=== PATIENT | male | born 1960 | race Caucasian/White ===

== ENCOUNTER 2017-11-28 13:40 | Inpatient (IN) | payer OTHER, MEDICARE ==
[2017-11-28] VITALS (9 sets, daily range): BP systolic 107–172; BP diastolic 58–84; PULSE 73–101; RESP 12–16; TEMP 97.5–98.2; O2SAT 97–100
[~2017-11-28] VITALS: Ht 185.4 cm; Wt 116.7 kg
[~2017-11-28 13:40] MED LIST: ASPI1TAB57 PO; CELE200C PO; CILO50TA PO; FLUT1SPR5 EACH NARE; GABA100C4 PO; LISI-515 PO; SITA1TAB2 PO; VENL75TA PO; VICT18IN SQ
--- NOTE | 2017-11-28 13:59 | PD ---
HPI Chief Complaint: Chest Pain Time Seen by Provider: 13:44 Travel History International Travel<30 days: No Contact w/Intl Traveler<30days: No Traveled to known affect area: No History of Present Illness HPI This is a 57-year-old male who presents to the emergency department with chest discomfort that started 20 minutes ago mostly in the left side of the chest, constant, sharp and stabbing radiating to the right arm and his left jaw. He denies any associated nausea, shortness of breath or diaphoresis. Says he had an episode about 3 weeks ago of chest discomfort and went to an ER in [place]. At that time he was evaluated for blood clot with a CT and he was told everything was okay. The patient does have a history of a DVT in the left lower extremity. He says his had a cardiac catheterization [address] Islas which was normal and he says he had a stress test 9 months ago which was normal at [facility]. PFS Past Medical History Anxiety: Yes Cardiac Catheterization: Yes (2013) Cardiovascular Problems: Yes (HTN) Dementia: Yes Diabetes: Yes Past Surgical History Abdominal Surgery: Yes (GASTRIC [id number],COLON [id number]) Cholecystectomy: Yes (2004) Other Surgery: Yes (L ULNAR NERVE) Social History Alcohol Use: No Tobacco Use: No Substance Use: No Allergies-Medications (Allergen,Severity, Reaction): Coded Allergies: losartan (Unverified Allergy, Severe, Rash, 11/28/17) Reported Meds & Prescriptions Reported Meds & Active Scripts Active Reported [Multivitamin] [Vitamin D] Unknown Dose Omeprazole 20 Mg Tab 20 Mg PO DAILY Aspirin 81 (Aspirin) 81 Mg Tabdr 81 Mg PO DAILY Celebrex (Celecoxib) 200 Mg Cap 200 Mg PO DAILY Gabapentin 100 Mg Cap 100 Mg PO BID Cilostazol 50 Mg Tab 50 Mg PO BID Victoza Inj (Liraglutide Inj) 18 Mg/3 Ml Pen 1.2 Mg SQ DAILY Lisinopril 20 Mg Tab 20 Mg PO DAILY Effexor (Venlafaxine HCl) 75 Mg Tab 75 Mg PO DAILY Januvia (Sitagliptin Phosphate) 100 Mg Tab 100 Mg PO DAILY Review of Systems Except as stated in HPI: all other systems reviewed are Neg Physical Exam Narrative GENERAL:Well appearing, no acute distress SKIN: Focused skin assessment warm and dry. HEAD: Atraumatic. Normocephalic. EYES: Pupils equal and round. No injection or drainage. ENT: Moist mucous membranes NECK: Trachea midline. CARDIOVASCULAR: Regular rate and rhythm. No murmur appreciated. RESPIRATORY: Clear to auscultation. Breath sounds equal bilaterally. GASTROINTESTINAL: Abdomen soft, non-tender, nondistended. MUSCULOSKELETAL: More swelling in the left lower extremity than the right. NEUROLOGICAL: Awake and alert. No obvious cranial nerve deficits. Moving all extremities. PSYCHIATRIC: Appropriate mood and affect; insight and judgment normal. Data Data Last Documented VS Vital Signs Date Time Temp Pulse Resp B/P (MAP) Pulse Ox O2 Delivery O2 Flow Rate FiO2 11/28/17 18:27 73 16 107/58 (74) 98 Nasal Cannula 2.00 11/28/17 13:53 98.2 Orders Orders Electrocardiogram (11/28/17 13:50) Complete Blood Count With Diff (11/28/17 13:50) Comprehensive Metabolic Panel (11/28/17 13:50) D-Dimer (11/28/17 13:50) Prothrombin Time / Inr (Pt) (11/28/17 13:50) Act Partial Throm Time (Ptt) (11/28/17 13:50) Troponin I (11/28/17 13:50) Chest, Single Ap (11/28/17 13:50) Ecg Monitoring (11/28/17 13:50) Bilateral Bp Monitoring (11/28/17 13:50) Iv Access Insert/Monitor (11/28/17 13:50) Oximetry (11/28/17 13:50) Oxygen Administration (11/28/17 13:50) Aspirin Chew (Aspirin Chew) (11/28/17 14:00) Sodium Chloride 0.9% Flush (Ns Flush) (11/28/17 14:00) Morphine Inj (Morphine Inj) (11/28/17 14:00) Morphine Inj (Morphine Inj) (11/28/17 15:15) Ct Pulmonary Angiogram (11/28/17 ) Al-Mag Hy-Si 40-40-4 Mg/Ml Liq (Mag-Al P (11/28/17 15:45) Lidocaine 2% Viscous (Xylocaine 2% Visco (11/28/17 15:45) Nljkb-Frxtgi-Azeeuo-Pb Liq ( Liq (11/28/17 15:45) Iohexol 350 Inj (Omnipaque 350 Inj) (11/28/17 16:27) Electrocardiogram (11/28/17 16:43) Creatine Kinase (Cpk) (11/28/17 16:43) Ckmb (Isoenzyme) Profile (11/28/17 16:43) Troponin I (11/28/17 16:43) Electrocardiogram (18 ) CKMB (11/28/17 17:10) CKMB% (11/28/17 17:10) Nitroglycerin Sl (Nitrostat Sl) (11/28/17 18:15) Admit Order (Ed Use Only) (11/28/17 19:16) Bedside Glucose NATASHA.CSUGAR (11/28/17 19:15) Blood Glucose Goal (Criteria) (11/28/17 19:15) Hypoglycemia 70 Mg/Dl Or < (11/28/17 19:15) Notify Dr: Other (11/28/17 19:15) Dextrose 50% In Dariel (Vial) Inj (D50w (Vi (11/28/17 19:15) Glucagon Inj (Glucagon Inj) (11/28/17 19:15) Insulin Aspart Supplemtl Scale (Novolog (11/28/17 21:00) Admit To Inpatient (11/28/17 ) Vital Signs (Adult) Q4H (11/28/17 19:15) Activity Oob Ad Marti (11/28/17 19:15) Logistics Analyst / Telemetry .CONTINUOUS (11/28/17 19:15) Intake + Output NATASHA.QSHIFT (11/28/17 19:15) Diet Heart Healthy (11/29/17 Breakfast) Sodium Chloride 0.9% Flush (Ns Flush) (11/28/17 19:15) Sodium Chloride 0.9% Flush (Ns Flush) (11/28/17 21:00) Ondansetron Inj (Zofran Inj) (11/28/17 19:15) Comprehensive Metabolic Panel (11/29/17 06:00) Complete Blood Count With Diff (11/29/17 06:00) Troponin I (11/29/17 00:00) Troponin I (11/29/17 06:00) Scd Bilateral/Knee High NATASHA.BID (11/28/17 19:15) Jackson Bilateral/Knee High NATASHA.QSHIFT (11/28/17 19:18) Acetaminophen (Tylenol) (11/28/17 19:15) Acetamin-Hydrocod 325-5 Mg ([place] 5-325 (11/28/17 19:15) Morphine Inj (Morphine Inj) (11/28/17 19:15) Docusate Sodium-Senna (Johanny-Colace) (11/28/17 21:00) Magnesium Hydroxide Liq (Milk Of Magnesi (11/28/17 19:15) Sennosides (Senokot) (11/28/17 19:15) Bisacodyl Supp (Dulcolax Supp) (11/28/17 19:15) Lactulose Liq (Lactulose Liq) (11/28/17 19:15) Inpatient Certification (11/28/17 ) Aspirin Ec (Ecotrin Ec) (11/29/17 09:00) Cilostazol (Pletal) (11/28/17 21:00) Gabapentin (Neurontin) (11/28/17 21:00) (Nf) Omeprazole (11/29/17 09:00) (Nf) Venlafaxine (Effexor) (11/29/17 09:00) Consult Cardiology (11/28/17 ) Labs Laboratory Tests Test 11/28/17 14:07 11/28/17 17:10 White Blood Count 9.5 TH/MM3 Red Blood Count 4.93 MIL/MM3 Hemoglobin 12.1 GM/DL Hematocrit 38.0 % Mean Corpuscular Volume 77.1 FL Mean Corpuscular Hemoglobin 24.5 PG Mean Corpuscular Hemoglobin Concent 31.7 % Red Cell Distribution Width 14.5 % Platelet Count 256 TH/MM3 Mean Platelet Volume 9.6 FL Neutrophils (%) (Auto) 60.6 % Lymphocytes (%) (Auto) 30.7 % Monocytes (%) (Auto) 5.6 % Eosinophils (%) (Auto) 2.5 % Basophils (%) (Auto) 0.6 % Neutrophils # (Auto) 5.8 TH/MM3 Lymphocytes # (Auto) 2.9 TH/MM3 Monocytes # (Auto) 0.5 TH/MM3 Eosinophils # (Auto) 0.2 TH/MM3 Basophils # (Auto) 0.1 TH/MM3 CBC Comment AUTO DIFF Differential Comment AUTO DIFF CONFIRMED Platelet Estimate NORMAL Platelet Morphology Comment NORMAL Red Cell Morphology Comment NORMAL Prothrombin Time 10.0 SEC Prothromb Time International Ratio 1.0 RATIO Activated Partial Thromboplast Time 24.9 SEC D-Dimer Quantitative (PE/DVT) 0.75 MG/L FEU Blood Urea Nitrogen 14 MG/DL Creatinine 1.10 MG/DL Random Glucose 200 MG/DL Total Protein 7.6 GM/DL Albumin 3.5 GM/DL Calcium Level 8.4 MG/DL Alkaline Phosphatase 99 U/L Aspartate Amino Transf (AST/SGOT) 17 U/L Alanine Aminotransferase (ALT/SGPT) 29 U/L Total Bilirubin 0.7 MG/DL Sodium Level 135 MEQ/L Potassium Level 4.1 MEQ/L Chloride Level 100 MEQ/L Carbon Dioxide Level 26.0 MEQ/L Anion Gap 9 MEQ/L Estimat Glomerular Filtration Rate 69 ML/MIN Troponin I 0.02 NG/ML 0.09 NG/ML Total Creatine Kinase 293 U/L Creatine Kinase MB 5.2 NG/ML MDM Medical Decision Making Medical Screen Exam Complete: Yes Emergency Medical Condition: Yes Interpretation(s) EKG: Normal sinus rhythm, no ST changes Mild anemia Hyperglycemia Repeat troponin at 3 hours is 0.09 CXR: no acute process Differential Diagnosis nSTEMI, unstable angina, pulmonary embolism, aortic dissection Narrative Course This is a 57-year-old male who presents to the emergency department with chest discomfort that started about 30 minutes prior to arrival. He was placed on a monitor and an IV was established. He was given aspirin and nitroglycerin. EKG is nonischemic. Labs were obtained which were initially reassuring. Given the recent onset of his chest pain a troponin was repeated at 3 hours and is 0.09. I spoke to Dr. Patel who is on-call for Dr. Islas. He recommended the patient be transferred to the main hospital for close monitoring and possible cardiac catheterization. He recommended we defer heparin until a repeat troponin to see if the troponin continues to trend up. Physician Communication Physician Communication Discussed with Dr. Patel and Dr. Pierce Diagnosis Primary Impression: Unstable angina Admitting Information Admitting Physician Requests: Admit Chula Mccollum MD Nov 28, 2017 13:59
[2017-11-28] MEDS ORDERED: ASPIRIN 81 MG CHEW TAB PO ONE (14:00)
[2017-11-28] MEDS ORDERED: MORPHINE SULFATE 2 MG/ML INJ IV PUSH ONE ×2 (14:00→15:15)
[2017-11-28] MEDS ORDERED: SODIUM CHLORIDE 0.9% FLUSH 10 ML FLUSH IVF PRN (14:00)
[2017-11-28] MEDS ORDERED: VITAMIN D (14:05)
[2017-11-28] MEDS ORDERED: OMEP20TA93 PO (14:05)
[2017-11-28] MEDS ORDERED: MULTIVITAMIN (14:05)
[2017-11-28 14:44] LABS: AUTOMATED NEUTROPHIL # 5.8 TH/MM3 (1.8-7.7); BASOPHIL # 0.1 TH/MM3 (0-0.2); BASOPHIL % 0.6 % (0.0-2.0); EOSINOPHIL # 0.2 TH/MM3 (0-0.4); EOSINOPHIL % 2.5 % (0.0-4.0); HEMOGLOBIN 12.1 GM/DL (13.0-17.0); LYMPH % 30.7 % (9.0-44.0); LYMPHOCYTE # 2.9 TH/MM3 (1.0-4.8); MEAN CELL VOLUME 77.1 FL (80.0-100.0); MEAN CORPUSCULAR HEMOGLOBIN 24.5 PG (27.0-34.0); MEAN CORPUSCULAR HGB CONC 31.7 % (32.0-36.0); MEAN PLATELET VOLUME 9.6 FL (7.0-11.0); MONO % 5.6 % (0.0-8.0); MONOCYTE # 0.5 TH/MM3 (0-0.9); NEUT % 60.6 % (16.0-70.0); PLATELET COUNT 256 TH/MM3 (150-450); RED BLOOD COUNT 4.93 MIL/MM3 (4.50-5.90); RED CELL DISTRIBUTION WIDTH 14.5 % (11.6-17.2); WHITE BLOOD COUNT 9.5 TH/MM3 (4.0-11.0)
[2017-11-28 14:52] LABS: CHLORIDE 100 MEQ/L (98-107); SODIUM (NA) 135 MEQ/L (136-145)
--- NOTE | 2017-11-28 14:53 | RADRPT ---
EXAM DATE/TIME: 11/28/2017 14:12 [facility] COMPARISON: No previous studies available for comparison. INDICATIONS : Chest pain today MEDICAL HISTORY : Diabetes mellitus type II. SURGICAL HISTORY : None. ENCOUNTER: Initial ACUITY: 1 day PAIN SCORE: 9/10 LOCATION: Bilateral chest FINDINGS: A single view of the chest demonstrates the lungs to be symmetrically aerated without evidence of mas s, infiltrate or effusion. The cardiomediastinal contours are unremarkable. Osseous structures are intact. CONCLUSION: 1. No acute cardiopulmonary disease. Isaac Nunez MD on November 28, 2017 at 14:50 Board Certified Radiologist. This report was verified electronically.
[2017-11-28 14:55] LABS: ALBUMIN 3.5 GM/DL (3.4-5.0); BLOOD UREA NITROGEN 14 MG/DL (7-18); CALCIUM 8.4 MG/DL (8.5-10.1); GLUCOSE,RANDOM 200 MG/DL (74-106)
[2017-11-28 14:58] LABS: ALT (GPT) 29 U/L (12-78)
[2017-11-28 14:59] LABS: AST (GOT) 17 U/L (15-37); GLOMERULAR FILTRATION RATE 69 ML/MIN (>89)
[2017-11-28 15:00] LABS: TOTAL BILIRUBIN ADULT 0.7 MG/DL (0.2-1.0); TOTAL PROTEIN 7.6 GM/DL (6.4-8.2)
[2017-11-28 15:01] LABS: ALKALINE PHOSPHATASE 99 U/L (45-117)
[2017-11-28 15:03] LABS: TROPONIN I 0.02 NG/ML (0.02-0.05)
[2017-11-28 15:33] LABS: D-DIMER 0.75 MG/L FEU (0.00-0.50)
[2017-11-28] MEDS ORDERED: LIDOCAINE VISCOUS 2% SOLN 15 ML UDC SWISH-SWAL ONE (15:45)
[2017-11-28] MEDS ORDERED: ATROPINE/SCOPOLAM/HYOSCYAM/PB ELIXIR 10 ML CUP PO ONE (15:45)
[2017-11-28] MEDS ORDERED: ALUMINUM/MAGNESIUM/SIMETH 30 ML CUP PO ONE (15:45)
[2017-11-28] MEDS ORDERED: IOHEXOL 350 MG/ML 10 ML VIAL (for RAD DIAG) IVCONTRAST ONE (16:27)
--- NOTE | 2017-11-28 16:36 | RADRPT ---
EXAM DATE/TIME: 11/28/2017 16:17 [facility] COMPARISON: CT PULMONARY ANGIOGRAM, January 07, 2015, 15:23. INDICATIONS : Left sided chest pain. IV CONTRAST: 75 cc Omnipaque 350 (iohexol) IV RADIATION DOSE: 21.41 CTDIvol (mGy) MEDICAL HISTORY : Hypertension. SURGICAL HISTORY : Gastric bypass. Colon resection.Orthopedic surgery. ENCOUNTER: Initial ACUITY: 1 day PAIN SCALE: 5/10 LOCATION: Left chest TECHNIQUE: Volumetric scanning of the chest was performed using a pulmonary embolism protocol MIP images were re constructed. Using automated exposure control and adjustment of the mA and/or kV according to patien t size, radiation dose was kept as low as reasonably achievable to obtain optimal diagnostic quality images. DICOM format image data is available electronically for review and comparison. Follow-up recommendations for detected pulmonary nodules are based at a minimum on nodule size and pa tient risk factors according to Fleischner Society Guidelines. FINDINGS: Examination of the pulmonary vasculature demonstrates good filling of the main, lobar and segmental b ranches. There are no filling defects to suggest pulmonary embolism. Multiplanar reconstructions are also unremarkable. Examination of the lung schofield demonstrates no evidence of pulmonary nodule. No pleural fluid is iden tified. Examination of the mediastinum demonstrates no abnormally enlarged lymph nodes by CT criteria . No axillary or hilar abnormalities are identified. Coronary artery calcifications are present. A sm all hiatal hernia is present. A gastric sleeve is evident. CONCLUSION: 1. No evidence of pulmonary embolism. Isaac Nunez MD on November 28, 2017 at 16:31 Board Certified Radiologist. This report was verified electronically.
[2017-11-28 17:51] LABS: TROPONIN I 0.09 NG/ML (0.02-0.05)
[2017-11-28] MEDS ORDERED: NITROGLYCERIN 0.4 MG SL 25 TABS/BTL SL ONE (18:15)
[2017-11-28] MEDS ORDERED: LACTULOSE SYRUP 20 GM/30 ML CUP PO PRN (19:15)
[2017-11-28] MEDS ORDERED: BISACODYL 10 MG SUPP RECTAL PRN (19:15)
[2017-11-28] MEDS ORDERED: DEXTROSE 50% IN WATER 50 ML VIAL(D50) IV PUSH PRN (19:15)
[2017-11-28] MEDS ORDERED: ACETAMINOPHEN/HYDROcodone 325 MG/5 MG TAB PO PRN (19:15)
[2017-11-28] MEDS ORDERED: ONDANSETRON HCL 4 MG/2 ML VIAL IVP PRN (19:15)
[2017-11-28] MEDS ORDERED: MAGNESIUM HYDROXIDE SUSP 30 ML CUP PO PRN (19:15)
[2017-11-28] MEDS ORDERED: GLUCAGON 1 MG/ML VIAL OTHER PRN (19:15)
[2017-11-28] MEDS ORDERED: ACETAMINOPHEN 325 MG TAB PO PRN (19:15)
[2017-11-28] MEDS ORDERED: MORPHINE SULFATE 2 MG/ML INJ IV PUSH PRN (19:15)
[2017-11-28] MEDS ORDERED: SODIUM CHLORIDE 0.9% FLUSH 10 ML FLUSH IV FLUSH PRN (19:15)
[2017-11-28] MEDS ORDERED: SENNOSIDES 8.6 MG TAB PO PRN (19:15)
[2017-11-28] MEDS: DOCUSATE SODIUM 50 MG/SENNA 8.6 MG TAB PO SCH (22:46)
[2017-11-28] MEDS: INSULIN ASPART SUPPLEMENTAL SCALE SQ SCH (22:56)
[2017-11-28] MEDS: GABAPENTIN 100 MG CAP PO SCH (23:04)
[2017-11-28] MEDS: CILOSTAZOL 50 MG TAB PO SCH (23:04)
[2017-11-28] MEDS: SODIUM CHLORIDE 0.9% FLUSH 10 ML FLUSH IV FLUSH SCH (23:05)
[2017-11-29] VITALS (25 sets, daily range): BP systolic 108–138; BP diastolic 58–80; PULSE 75–98; RESP 14–18; TEMP 97.7–99; O2SAT 93–99
--- NOTE | 2017-11-29 00:21 | HHI.HP ---
[facility] Service [facility] Primary Care Physician Ryan Frost MD Admission Diagnosis Unstable angina Diagnoses: (1) Unstable angina Diagnosis: Principal Chief Complaint: Chest pain Travel History International Travel<30 Days: No Contact w/Intl Traveler <30 Da: No Traveled to Known Affected Are: No History of Present Illness Mr. Werner is a pleasant 57-year-old male patient with a known medical history of CAD with history of CABG, type 2 diabetes and hypertension who presented to the ED with complaints of chest pain. Patient states that around 1300 today while at rest he developed a sudden midsternal chest pain that radiated to his right arm, jaw and neck. Patient states the pain was intermittent, sharp and burning in nature, would intermittently worsen in severity, and rated a 9/10 on pain scale at its worst. Patient denies any aggravating or relieving factors, denies any associated nausea, vomiting, or diaphoresis. Does admit to associated shortness of breath with chest pain. Patient does state improvement of pain with the use of nitroglycerin and aspirin in the ED. Patient states that in late October he developed a similar type of chest discomfort and was evaluated in the ER in [place]. At that time CT of the chest and lower extremity ultrasounds were performed which were reportedly unremarkable. Patient does follow with the inside sales, Dr. Islas, who was last seen 9 months ago and at that time patient underwent a cardiac stress test which was reportedly unremarkable. Patient does report a history of CABG in 2003. Denies any recent fever, chills, cough, shortness of breath, abdominal pain, nausea, vomiting, diarrhea or dysuria. At the time of assessment patient is lying in bed comfortably, rated the pain a 2/10 on pain scale, has just received IV morphine. Awaiting third set of cardiac enzymes. Review of Systems Constitutional: DENIES: Diaphoretic episodes, Fatigue, Fever, Chills Eyes: DENIES: Diplopia, Vision loss Respiratory: COMPLAINS OF: Shortness of breath, DENIES: Cough, Sputum production Cardiovascular: COMPLAINS OF: Chest pain, Palpitations, Dyspnea on Exertion Gastrointestinal: DENIES: Abdominal pain, Bloody stools, Constipation, Diarrhea , Nausea, Vomiting Psychiatric: DENIES: Anxiety Except as stated in HPI: all other systems reviewed are Neg Past Family Social History Past Medical History Type 2 diabetes mellitus Hypertension CAD with history of CABG Anxiety Past Surgical History Gastric bypass 2004 Colon resection 2012 Cholecystectomy 2005 Bilateral ulnar nerve release Right shoulder rotator cuff repair Reported Medications Active Reported [Multivitamin] [Vitamin D] Unknown Dose Omeprazole 20 Mg Tab 20 Mg PO DAILY Aspirin 81 (Aspirin) 81 Mg Tabdr 81 Mg PO DAILY Celebrex (Celecoxib) 200 Mg Cap 200 Mg PO DAILY Gabapentin 100 Mg Cap 100 Mg PO BID Cilostazol 50 Mg Tab 50 Mg PO BID Victoza Inj (Liraglutide Inj) 18 Mg/3 Ml Pen 1.2 Mg SQ DAILY Lisinopril 20 Mg Tab 20 Mg PO DAILY Effexor (Venlafaxine HCl) 75 Mg Tab 75 Mg PO DAILY Januvia (Sitagliptin Phosphate) 100 Mg Tab 100 Mg PO DAILY Allergies: Coded Allergies: losartan (Unverified Allergy, Severe, Rash, 11/28/17) Active Ordered Medications Current Medications Medications (Trade) Dose Ordered Sig/Heidi Route Start Time Stop Time Status Last Admin (NS Flush) 2 ml UNSCH PRN IVF 11/28/17 14:00 11/28/17 14:12 (D50w (Vial) Inj) 50 ml UNSCH PRN IV PUSH 11/28/17 19:15 (Glucagon Inj) 1 mg UNSCH PRN OTHER 11/28/17 19:15 (NovoLOG SUPPLEMENTAL SCALE) 1 ACHS SLIDING SCALE SQ 11/28/17 21:00 (NS Flush) 2 ml UNSCH PRN IV FLUSH 11/28/17 19:15 (NS Flush) 2 ml BID IV FLUSH 11/28/17 21:00 11/28/17 23:05 (Zofran Inj) 4 mg Q6H PRN IVP 11/28/17 19:15 (Tylenol) 650 mg Q6H PRN PO 11/28/17 19:15 ([place] 5-325 Mg) 1 tab Q4H PRN PO 11/28/17 19:15 (Morphine Inj) 2 mg Q3H PRN IV PUSH 11/28/17 19:15 (Johanny-Colace) 1 tab BID PO 11/28/17 21:00 (Milk Of Magnesia Liq) 30 ml Q12H PRN PO 11/28/17 19:15 (Senokot) 17.2 mg Q12H PRN PO 11/28/17 19:15 (Dulcolax Supp) 10 mg DAILY PRN RECTAL 11/28/17 19:15 (Lactulose Liq) 30 ml DAILY PRN PO 11/28/17 19:15 (Ecotrin Ec) 81 mg DAILY PO 11/29/17 09:00 (Pletal) 50 mg BID PO 11/28/17 21:00 (Neurontin) 100 mg BID PO 11/28/17 21:00 11/28/17 23:04 (Protonix) 20 mg DAILY PO 11/29/17 09:00 (Effexor) 75 mg DAILY PO 11/29/17 09:00 (Pravachol) 40 mg DAILY PO 11/29/17 09:00 Family History Maternal medical history significant for aortic valve replacement, cardiac stents, type 2 diabetes mellitus Paternal medical history significant for WI with cardiac stents Grandfather history of [place] Social History Patient denies any current or previous history of tobacco use. Denies any alcohol use. Denies any illicit drug use. Physical Exam Vital Signs Vital Signs Date Time Temp Pulse Resp B/P (MAP) Pulse Ox O2 Delivery O2 Flow Rate FiO2 11/28/17 21:46 77 16 119/73 (88) 99 Nasal Cannula 2.00 11/28/17 21:08 78 16 122/77 (92) 98 Room Air 11/28/17 19:21 77 16 121/75 (90) 98 11/28/17 18:27 73 16 107/58 (74) 98 Nasal Cannula 2.00 11/28/17 18:17 78 16 172/84 (113) 99 Nasal Cannula 2.00 11/28/17 14:33 82 16 131/82 (98) 100 Nasal Cannula 2.00 142/81 (101) 11/28/17 14:02 16 100 Nasal Cannula 2.00 11/28/17 14:01 Nasal Cannula 2.00 11/28/17 13:57 16 100 Room Air 11/28/17 13:53 98.2 101 16 143/72 (95) 100 Physical Exam GENERAL: This is a well-nourished, well-developed male patient, lying in bed in no apparent distress. SKIN: No rashes, ecchymoses or lesions. Warm and dry. HEAD: Atraumatic. Normocephalic. EYES: Pupils equal round and reactive. Extraocular motions intact. No scleral icterus. No injection or drainage. ENT: Nose without bleeding, purulent drainage or septal hematoma. Throat without erythema, tonsillar hypertrophy or exudate. Uvula midline. Airway patent. NECK: Trachea midline. No JVD. Supple. CARDIOVASCULAR: Regular rate and rhythm without murmurs, gallops, or rubs. Some reproducible midsternal chest/epigastric discomfort to palpation. RESPIRATORY: Clear to auscultation. Breath sounds equal bilaterally. No wheezes , rales, or rhonchi. GASTROINTESTINAL: Abdomen soft, non-tender, nondistended. No guarding. Active bowel sounds. MUSCULOSKELETAL: Extremities without clubbing, cyanosis, or edema. No joint tenderness, effusion, or edema noted. NEUROLOGICAL: Awake and alert. Cranial nerves II through XII intact. Motor and sensory grossly within normal limits. Five out of 5 muscle strength in all muscle groups. Normal speech. Laboratory Laboratory Tests Test 11/28/17 14:07 11/28/17 17:10 White Blood Count 9.5 Red Blood Count 4.93 Hemoglobin 12.1 Hematocrit 38.0 Mean Corpuscular Volume 77.1 Mean Corpuscular Hemoglobin 24.5 Mean Corpuscular Hemoglobin Concent 31.7 Red Cell Distribution Width 14.5 Platelet Count 256 Mean Platelet Volume 9.6 Neutrophils (%) (Auto) 60.6 Lymphocytes (%) (Auto) 30.7 Monocytes (%) (Auto) 5.6 Eosinophils (%) (Auto) 2.5 Basophils (%) (Auto) 0.6 Neutrophils # (Auto) 5.8 Lymphocytes # (Auto) 2.9 Monocytes # (Auto) 0.5 Eosinophils # (Auto) 0.2 Basophils # (Auto) 0.1 CBC Comment AUTO DIFF Differential Comment AUTO DIFF CONFIRMED Platelet Estimate NORMAL Platelet Morphology Comment NORMAL Red Cell Morphology Comment NORMAL Prothrombin Time 10.0 Prothromb Time International Ratio 1.0 Activated Partial Thromboplast Time 24.9 D-Dimer Quantitative (PE/DVT) 0.75 Blood Urea Nitrogen 14 Creatinine 1.10 Random Glucose 200 Total Protein 7.6 Albumin 3.5 Calcium Level 8.4 Alkaline Phosphatase 99 Aspartate Amino Transf (AST/SGOT) 17 Alanine Aminotransferase (ALT/SGPT) 29 Total Bilirubin 0.7 Sodium Level 135 Potassium Level 4.1 Chloride Level 100 Carbon Dioxide Level 26.0 Anion Gap 9 Estimat Glomerular Filtration Rate 69 Troponin I 0.02 0.09 Total Creatine Kinase 293 Creatine Kinase MB 5.2 Result Diagram: 11/28/17 1407 11/28/17 1407 Imaging Last Impressions Chest X-Ray 11/28/17 1350 Signed Impressions: Service Date/Time: Tuesday, November 28, 2017 14:12 - CONCLUSION: 1. No acute cardiopulmonary disease. Isaac Nunez MD CT Angiography 11/28/17 0000 Signed Impressions: Service Date/Time: Tuesday, November 28, 2017 16:17 - CONCLUSION: 1. No evidence of pulmonary embolism. Isaac Nunez MD Septic Shock Reassessment Septic shock perfusion: reassessment completed Caprini VTE Risk Assessment Caprini VTE Risk Assessment: No/Low Risk (score <= 1) Caprini Risk Assessment Model Point Value = 1 Point Value = 2 Point Value = 3 Point Value = 5 Age 41-60 Minor surgery BMI > 25 kg/m2 Swollen legs Varicose veins or History of unexplained or recurrent spontaneous Oral contraceptives or hormone replacement Sepsis (< 1 month) Serious lung disease, including pneumonia (< 1 month) Abnormal pulmonary function Acute myocardial infarction Congestive heart failure (< 1 month) History of inflammatory bowel disease Medical patient at bed rest Age 61-74 Arthroscopic surgery Major open surgery (> 45 min) Laparoscopic surgery (> 45 min) Malignancy Confined to bed (> 72 hours) Immobilizing plaster cast Central venous access Age >= 75 History of VTE Family history of VTE Factor V Leiden Prothrombin [id number] Lupus anticoagulant Anticardiolipin antibodies Elevated serum homocysteine Heparin-induced thrombocytopenia Other congenital or acquired thrombophilia Stroke (< 1 month) Elective arthroplasty Hip, pelvis, or leg fracture Acute spinal cord injury (< 1 month) Prophylaxis Regimen Total Risk Factor Score Risk Level Prophylaxis Regimen 0-1 Low Early ambulation 2 Moderate Order ONE of the following: *Sequential Compression Device (SCD) *Heparin 5000 units SQ BID 3-4 Higher Order ONE of the following medications: *Heparin 5000 units SQ TID *Enoxaparin/Lovenox 40 mg SQ daily (WT < 150 kg, CrCl > 30 mL/min) *Enoxaparin/Lovenox 30 mg SQ daily (WT < 150 kg, CrCl > 10-29 mL/min) *Enoxaparin/Lovenox 30 mg SQ BID (WT < 150 kg, CrCl > 30 mL/min) AND/OR *Sequential Compression Device (SCD) 5 or more Highest Order ONE of the following medications: *Heparin 5000 units SQ TID (Preferred with Epidurals) *Enoxaparin/Lovenox 40 mg SQ daily (WT < 150 kg, CrCl > 30 mL/min) *Enoxaparin/Lovenox 30 mg SQ daily (WT < 150 kg, CrCl > 10-29 mL/min) *Enoxaparin/Lovenox 30 mg SQ BID (WT < 150 kg, CrCl > 30 mL/min) AND *Sequential Compression Device (SCD) Assessment and Plan Problem List: (1) Unstable angina ICD Code: I20.0 - Unstable angina Status: Acute Plan: Patient has been admitted. Serial EKGs and serial troponins have been ordered for ruling out ACS purposes. Initial troponin 0.02, second troponin 0.09. Await third set. EKG reviewed showing normal sinus rhythm, with controlled rate. No ST changes to indicate any acute ischemia. Patient was given sublingual nitroglycerin and morphine IV in the ED, pain has improved but mildly still present, currently rated a 2/10 on pain scale. [place] by mouth available when necessary per pain scale, morphine IV available when necessary for pain scale. Aspirin given in ED. Started on daily dose. CBC and BMP reviewed and essentially unremarkable. D-dimer elevated, CTA reviewed showing no PE. Chest x-ray reviewed showing no acute cardiopulmonary disease. Vital signs are stable. Continue cardiac telemetry, monitor for any presence of arrhythmias. Consult placed to Dr. Patel, awaiting third set of cardiac enzymes. Possible plan for cardiac catheterization in am and start of hepatin drip if third troponin elevated. Awaiting results. Follow. Patient is stable at this time and agreeable to the plan. (2) Type 2 diabetes mellitus ICD Code: E11.9 - Type 2 diabetes mellitus without complications Plan: Random glucose 200. Accu-Chek before meals and at bedtime, sliding scale insulin, cover as needed. Monitor blood sugar trends. (3) Hyperlipidemia ICD Code: E78.5 - Hyperlipidemia, unspecified Plan: Continue home pravastatin. (4) GERD (gastroesophageal reflux disease) ICD Code: K21.9 - Gastro-esophageal reflux disease without esophagitis Plan: Protonix. DVT prophylaxis: SCDs. Heparin drip. Physician Certification 2 Midnight Certification Type: Admission for Inpatient Services Order for Inpatient Services The services are ordered in accordance with Medicare regulations or non- Medicare payer requirements, as applicable. In the case of services not specified as inpatient-only, they are appropriately provided as inpatient services in accordance with the 2-midnight benchmark. Estimated LOS (days): 2 2 days is the estimated time the patient will need to remain in the hospital, assuming treatment plan goals are met and no additional complications. Post-Hospital Plan: Home Ayanna Velazquez Nov 29, 2017 00:21
[2017-11-29] MEDS ORDERED: HEPARIN-D5W 25,000 U/250 ML 250 ML IV PRN (02:15)
[2017-11-29 02:35] LABS: AUTOMATED NEUTROPHIL # 5.8 TH/MM3 (1.8-7.7); BASOPHIL # 0.1 TH/MM3 (0-0.2); BASOPHIL % 0.5 % (0.0-2.0); EOSINOPHIL # 0.3 TH/MM3 (0-0.4); HEMOGLOBIN 12.2 GM/DL (13.0-17.0); LYMPH % 34.6 % (9.0-44.0); LYMPHOCYTE # 3.7 TH/MM3 (1.0-4.8); MEAN CELL VOLUME 77.4 FL (80.0-100.0); MEAN CORPUSCULAR HEMOGLOBIN 26.2 PG (27.0-34.0); MEAN CORPUSCULAR HGB CONC 33.8 % (32.0-36.0); MEAN PLATELET VOLUME 8.9 FL (7.0-11.0); MONO % 6.9 % (0.0-8.0); MONOCYTE # 0.7 TH/MM3 (0-0.9); PLATELET COUNT 263 TH/MM3 (150-450); RED BLOOD COUNT 4.65 MIL/MM3 (4.50-5.90); RED CELL DISTRIBUTION WIDTH 15.4 % (11.6-17.2); WHITE BLOOD COUNT 10.6 TH/MM3 (4.0-11.0)
[2017-11-29 06:38] LABS: CHOLESTEROL 194 MG/DL (120-200); TRIGLYCERIDES 113 MG/DL (42-150)
[2017-11-29 06:42] LABS: CHOLESTEROL/ HDL RATIO 4.32 RATIO; HDL CHOLESTEROL 44.9 MG/DL (40.0-60.0); LDL CHOLESTEROL 127 MG/DL (0-99)
[2017-11-29 07:21] LABS: ALBUMIN 3.1 GM/DL (3.4-5.0); ALKALINE PHOSPHATASE 87 U/L (45-117); ALT (GPT) 27 U/L (12-78); AST (GOT) 34 U/L (15-37); BICARBONATE 23.3 MEQ/L (21.0-32.0); BLOOD UREA NITROGEN 11 MG/DL (7-18); CALCIUM 8.1 MG/DL (8.5-10.1); CHLORIDE 105 MEQ/L (98-107); CREATININE 0.93 MG/DL (0.60-1.30); GLOMERULAR FILTRATION RATE 83 ML/MIN (>89); GLUCOSE,RANDOM 150 MG/DL (74-106); SODIUM (NA) 137 MEQ/L (136-145); TOTAL BILIRUBIN ADULT 0.6 MG/DL (0.2-1.0); TOTAL PROTEIN 6.8 GM/DL (6.4-8.2)
[2017-11-29 07:28] LABS: TROPONIN I 3.17 NG/ML (0.02-0.05)
[2017-11-29] MEDS: INSULIN ASPART SUPPLEMENTAL SCALE SQ SCH ×4 (08:00→21:00)
[2017-11-29] MEDS ORDERED: MIDAZOLAM HCL 2 MG/2 ML VIAL IV PUSH SCH (08:15)
[2017-11-29] MEDS ORDERED: diphenhydrAMINE HCL 50 MG CAP PO SCH (08:15)
[2017-11-29] MEDS ORDERED: DIAZEPAM 10 MG TAB PO SCH (08:15)
[2017-11-29] MEDS: DOCUSATE SODIUM 50 MG/SENNA 8.6 MG TAB PO SCH ×2 (08:19→20:54)
[2017-11-29] MEDS: SODIUM CHLORIDE 0.9% FLUSH 10 ML FLUSH IV FLUSH SCH ×2 (08:20→20:53)
[2017-11-29] MEDS: GABAPENTIN 100 MG CAP PO SCH ×2 (08:20→20:54)
[2017-11-29] MEDS: PANTOPRAZOLE SOD 20 MG DELAYED RELEASE TAB PO SCH (08:20)
[2017-11-29] MEDS: CILOSTAZOL 50 MG TAB PO SCH ×2 (08:21→20:54)
--- NOTE | 2017-11-29 08:30 | MB ---
cc: NICOLE CHARLTON M.D. DATE OF CONSULTATION 11/29/2017 REASON FOR CONSULTATION Abnormal cardiac enzymes. HISTORY OF PRESENT ILLNESS The patient is a 57-year-old white male, followed in our office by Dr. Corona Islas, with a history of hypertension, diabetes, hyperlipidemia, left lower extremity deep venous thrombosis in 2013, who was in his usual state of health up until two weeks ago when while in [place] he developed substernal chest discomfort associated with diaphoresis. He was evaluated in the emergency department there, apparently with a CT angiogram which showed no evidence for pulmonary embolism. Yesterday he developed recurrent chest discomfort without associated shortness of breath, nausea or diaphoresis, lasting about 10-15 minutes, relieved by sublingual nitroglycerin. The chest discomfort, however, recurred a short time later so he came to the emergency room for further evaluation and treatment. Cardiac enzymes have been found to be abnormal. The patient states he continues to have somewhat waxing and waning chest discomfort this morning. He denies pleurisy, lightheadedness, syncope, near-syncope, palpitations, change in chronic intermittent left pedal edema. The patient states he had a heart catheterization about four years ago showing no disease. PAST MEDICAL HISTORY 1. Hypertension. 2. Hyperlipidemia. 3. Diabetes. 4. Left lower extremity deep venous thrombosis about 3 years ago after colon surgery which was a partial colectomy due to a large benign mass. CARDIAC MEDICATIONS AT HOME 1. Lisinopril 20 mg daily. 2. Aspirin 81 mg daily. ALLERGIES LOSARTAN. FAMILY HISTORY There is no significant family history of early myocardial infarction. SOCIAL HISTORY The patient denies any history of alcohol or tobacco abuse. REVIEW OF SYSTEMS As in the History of Present Illness, otherwise negative or noncontributory. He also denies abdominal pain, melena, dyspepsia, bright red blood per rectum, wheezing or cough. PHYSICAL EXAMINATION VITAL SIGNS: On physical examination his blood pressure is 113/70 with a pulse of 90, respirations 14. GENERAL: He is a well-developed, well-nourished white male in no acute distress. NECK/HEENT EXAMINATION: Jugular venous pressure is normal. Carotid pulses are 2+ bilaterally and without bruits. CHEST: Examination of the chest reveals clear lung schofield. CARDIAC EXAMINATION: He has a regular rhythm and rate without S3, S4 or murmur. ABDOMEN: On abdominal examination he has a soft, obese, nontender abdomen. Bowel sounds are present. There is no definite hepatosplenomegaly. EXTREMITIES: Examination of the extremities reveals no clubbing or cyanosis. There is trace pretibial edema bilaterally. Peripheral pulses are normal throughout. EKG Normal sinus rhythm, normal EKG. LABORATORY DATA WBC 10.6, hemoglobin 12.2, platelets 263. Potassium 4.2, BUN 11, creatinine 0.93. Troponin 3.17. CK 293. Total cholesterol 194, LDL 127, HDL 45, triglycerides 113. CHEST X-RAY No acute disease. IMPRESSION [id number] myocardial infarction in his 57-year-old white male with a history of hypertension, hyperlipidemia, diabetes, left lower extremity deep venous thrombosis. Troponin levels are consistent with acute myocardial infarction. EKG shows no acute diagnostic ST-segment or T-wave changes. He may have severe left circumflex disease. At this time he continues to have waxing and waning chest discomfort. Because of the instability of his symptoms and the abnormal cardiac enzymes, he has been recommended cardiac catheterization with probable percutaneous coronary prevention the risks of which have explained to him including but not limited to , myocardial infarction, stroke, arrhythmia, bleeding, infection, renal failure. He agrees to proceed. RECOMMENDATIONS 1. Cardiac catheterization today. 2. Start beta augusta therapy. 3. Given his very suboptimal lipid profile, recommend maximum dose atorvastatin. MD JOSÉ Reyes/ALCIDES /7:53 AM 8:07 AM JEREMY
[2017-11-29] MEDS: SODIUM CHLOR 0.9% 1000 ML INJ 1,000 ML IV SCH ×3 (09:00→20:53)
[2017-11-29] MEDS ORDERED: PRAVASTATIN SOD 40 MG TAB PO SCH (09:00)
[2017-11-29] MEDS: VENLAFAXINE HCL 75 MG TAB PO SCH (09:00)
[2017-11-29] MEDS ORDERED: ASPIRIN EC 81 MG TABEC PO SCH (09:00)
[2017-11-29 09:29] LABS: HEMOGLOBIN A1C 6.8 % (4.3-6.0)
[2017-11-29] MEDS: CARVEDILOL 3.125 MG TAB PO SCH ×2 (11:40→20:54)
[2017-11-29] MEDS ORDERED: OXYMETAZOLINE HCL 0.05% 15 ML NASAL SPRAY NASAL ONE (13:00)
[2017-11-29] MEDS: FLUTICASONE PROPIONATE 50 MCG/ACT 16 GM NASAL SPRAY NASAL SCH ×2 (13:00→20:55)
[2017-11-29] MEDS ORDERED: IOHEXOL 350 MG/ML 100 ML BTL (for Cath Lab) OTHER ONE (14:40)
[2017-11-29] MEDS ORDERED: IOHEXOL 350 MG/ML 50 ML BTL (for Cath Lab) OTHER ONE (14:40)
[2017-11-29] MEDS ORDERED: MIDAZOLAM HCL 2 MG/2 ML VIAL ONE ×3 (14:51→15:45)
[2017-11-29] MEDS ORDERED: NITROGLYCERIN INJ 5 ML ONE (14:51)
[2017-11-29] MEDS ORDERED: HEPARIN SODIUM - IV 10,000 UNITS/10 ML VIAL ONE (14:51)
[2017-11-29] MEDS ORDERED: VERAPAMIL HCL 5 MG/2 ML VIAL ONE (14:51)
[2017-11-29] MEDS ORDERED: HEPARIN-NS/PF INJ 500 ML ONE (14:51)
[2017-11-29] MEDS ORDERED: TIROFIBAN INFUSION INJ 250 ML IV ONE (15:45)
[2017-11-29] MEDS ORDERED: TICAGRELOR 90 MG TAB PO ONE (16:34)
--- NOTE | 2017-11-29 16:59 | CATHPROC ---
[employer] HIS Report Study Information Study Number Admission Scheduled Start Study Start [id number] Nov 28 2017 7:18PM 11/29/2017 Nov 29 2017 2:35PM [facility] Service Cardiac Catheterization Admit Source Facility Department Emergency department [facility] - Breastfeeding Program Coordinator Physician and Clinical Staff Initial Андрей Yao RN, [place] RecordNancy García,CHANTEL TECH2 Scrub Rolanda Dean,RT(R) Procedures Performed Procedure Location (Site) Vessel Name Coronary Angiograms LCA Left Coronary Coronary Angiograms RCA Right Coronary Coronary Angiograms Brach. Art. (right) Brachial Art. Drug Eluting Inflatio CIRC Mid CIRC Drug Eluting Inflatio OM1 Prox CIRC PTCA CIRC Mid CIRC PTCA OM1 Prox CIRC Wire insertion Radial (right) Radial Art. Equipment Time Adjunct Political Science Instructor Description Size Mfg Part Number Used/Scraped [id number] 15:44 [employer] WIRE, ASAHI PROWATER 180CM 180CM Used *[id number] WIRE, WHISPER W/HYDROCOAT [id number] 16:15 [employer] 190CM Used 190CM *[id number] TRANSDUCER, TRUWAVE [id number] 14:54 PRO POWELL * Used W/STOCKCOCK *[id number] *[id number] *[id number] [id number] *[id number] [phone] *[id number] [id number] *[id number] WIRE, HYDROSTEER 150CM [id number] 15:24 DAIG/[employer]. [employer] 150CM Used ANGLED GLIDE *[id number] MEDICAL CONCEPT DRAPE, RADIAL FEMORAL FULL 14:54 * [id number] *[id number] Used DEVELOPMENT BODY [id number] 14:54 [employer] INDUSTRIES PACK, CCL CUSTOM * Used *[id number] 14:54 Enplug SUPPORT, ARTERIAL ADULT [id number] *[id number] Used [id number] 14:54 MEDLINE PACER PEN, SKIN DUAL W/ RULER * Used *[id number] 16:00 MEDTRONIC BALLOON, 2.0 X 12MM EUPHORA 12MM Used *[id number] 16:23 MEDTRONIC BALLOON, 2.0 X 20MM EUPHORA 20MM Used *[id number] 15:38 MEDTRONIC JL 3.5 DXTERITY CATHETER FR 5 Used *[id number] 16:04 MEDTRONIC STENT, 2.25 15MM ANAHI 2.25 15MM [id number] Used 16:32 MEDTR[employer]IC STENT, 2.25 22MM ANAHI 2.25 22MM [id number] Used [id number] 16:02 [employer] 30 MARIO INDEFLATOR Used *[id number] BAND, RADIAL COMPRESSION TR [id number] 16:33 [employer] MEDICAL 24CM Used SHORT 24 *[id number] SHEATH, FR6 RADIAL PRELUDE 14:54 [employer] FR 6 [id number] Used EASE 11CM [id number] 14:54 [employer] WIRE, EXCHANGE 260CM 3MMJ 260CM Used *[id number] 14:54 NAMIC MANIFOLD, 4 PORT * Used *[id number] 14:54 NYCOMED OMNIPAQUE, 350 MG, 150ML 150ML [id number] Used [id number] 14:54 [employer] BLANKET,WARM AIR CCL * Used *[id number] CATHETER, FR5 OPTITORQUE [id number] 15:18 [employer] MEDICAL FR 5 Used RADIAL TIG 4.0 *[id number] Equipment Model, Serial, Lot Number and Expiration Data Description Model Number Serial Number Lot Number Expiration Date STENT, 2.25 15MM ANAHI [id number] 08-13-2019 WIRE, HYDROSTEER 150CM [id number] 07-22-2020 ANGLED GLIDE History: Allergies Allergy Reaction losartan Rash History: Risk Factors Family History of Hypertension Dyslipidemia Previous AL Previous Heart Failure Premature CAD Yes Yes Yes No No Prior Valve Prior PCI Prior CABG Surgery No No No Cerebrovascular Peripheral Artery Chronic Lung On Dialysis Diabetes Diabetes Therapy Disease Disease Disease No No No No Yes Oral History: Symptoms/Diagnosis Selection Items Chest pain History: Stress Tests Stress or Imaging Studies Performed No History: Other Current Smoker No Labs Hgb (g/dl) Hct (%) Platelets (thousands) 11.60-17.00 35.00-51.00 150.00-450.00 12.2 36 263 Glucose (mg/dl) BUN (mg/dl) Creatinine (mg/dl) BUN:Creatinine (1:x) 74.00-106.00 7.00-18.00 0.50-1.30 10.00-20.00 150 11 0.9 12.2 Na (meq/l) K (meq/l) 136.00-145.00 3.50-5.10 137 4.2 INR (PTT:PT) 0.90-1.10 1 Troponin I (ng/ml) CPK (u/l) CPK-MB (ng/ML) 0.02-0.05 26.00-308.00 0.50-3.60 3.17 293 5.2 Medication Medication Total Dose (Bolus/Oral) Medication Total Dosage/Unit 1% XYLOCAINE 10 mL AGGRASTAT BOLUS 58 mg BRILINTA 180 mg FENTANYL 100 mcg HEPARIN 9000 units NTG (IC) 150 mcg OXYGEN 2 l/min RADIAL COCKTAIL 5 mL (Bolus) VERSED 6 mg Medications (Bolus/Oral) Medication Time Given Dosage/Unit Administered By Reason VERSED 11/29/2017 3:17:24 PM 2 mg [place] Dotson RN 2 mg VERSED given in lab by [place] Dotson RN in Right Antecubital via Peripheral IV. Ordered by Андрей Odonnell. 1% XYLOCAINE 11/29/2017 3:19:58 PM 10 mL Андрей Odonnell 10 mL 1% XYLOCAINE given in lab by Андрей Odonnell in Right Radial via Subcutaneous. Ordered by Michelle Odonnell. Ntg 200mcg Verapamil 2.5mg Heparin RADIAL COCKTAIL 11/29/2017 3:22:28 PM 5 mL (Bolus) Андрей Odonnell 2500U 5 mL (Bolus) RADIAL COCKTAIL given in lab by Андрей Odonnell in Right Radial via Radial. Using [Solution Name]. Ordered by Андрей Odonnell. Reason: Ntg 200mcg Verapamil 2.5mg Heparin 2500U. VERSED 11/29/2017 3:26:17 PM 2 mg [place] Dotson RN 2 mg VERSED given in lab by [place] Dotson RN in Right Antecubital via Peripheral IV. Ordered by Андрей Odonnell. OXYGEN 11/29/2017 3:26:27 PM 2 l/min [place] Dotson RN 2 l/min OXYGEN given in lab by [place] Dotson RN via Nasal. Ordered by Андрей Odonnell. AGGRASTAT BOLUS 11/29/2017 3:48:22 PM 58 mg [place] Dotson RN 58 mg AGGRASTAT BOLUS given in lab by [place] Dotson RN in Right Antecubital via Peripheral IV. Ordered by Андрей Odonnell. HEPARIN 11/29/2017 3:49:35 PM 7000 units [place] Dotson RN 7000 units HEPARIN given in lab by [place] Dotson RN in Right Antecubital via Peripheral IV. Ordered by Андрей Odonnell. VERSED 11/29/2017 3:50:20 PM 1 mg Mauri SALGUERO, [place] 1 mg VERSED given in lab by Mauri SALGUERO, [place] in Right Antecubital via Peripheral IV. Ordered by Андрей Odonnell. FENTANYL 11/29/2017 3:53:45 PM 50 mcg [place] Dotson RN 50 mcg FENTANYL given in lab by [place] Dotson RN in Right Antecubital via Peripheral IV. Ordered by Андрей Ramos. HEPARIN 11/29/2017 4:00:34 PM 2000 units Mauri SALGUERO, [place] 2000 units HEPARIN given in lab by [place] Dotson RN in Right Antecubital via Peripheral IV. Ordered by Андрей Odonnell. NTG (IC) 11/29/2017 4:05:50 PM 50 mcg Андрей Odonnell 50 mcg NTG (IC) given in lab by Аднрей Odonnell via Intra-coronary. Ordered by Андрей Odonnell. NTG (IC) 11/29/2017 4:06:25 PM 50 mcg Андрей Odonnell 50 mcg NTG (IC) given in lab by Андрей Odonnell via Intra-coronary. Ordered by Андрей Odonenll. NTG (IC) 11/29/2017 4:22:04 PM 50 mcg Андрей Odonnell 50 mcg NTG (IC) given in lab by Андрей Odonnell via Intra-coronary. Ordered by Андрей Odonnell. FENTANYL 11/29/2017 4:27:16 PM 50 mcg [place] Dotson RN 50 mcg FENTANYL given in lab by [place] Dots[place] RN in Right Antecubital via Peripheral IV. Ordered by Андрей Ramos. VERSED 11/29/2017 4:28:52 PM 1 mg [place] Dotson RN 1 mg VERSED given in lab by [place] Dots[place] RN in Right Antecubital via Peripheral IV. Ordered by Андрей Odonnell. BRILINTA 11/29/2017 4:38:17 PM 180 mg [place] Dotson RN 180 mg BRILINTA given in lab by [place] Dotson RN via Oral. Ordered by Андрей Odonnell. Medication (Drip) Medication Time Given Dosage/Unit Concentration/Unit Diluent (ml) Solution AGGRASTAT DRIP 11/29/2017 3:52:38 PM 0.15 mcg/kg/min 12.5 mg 250 NaCl .9 0.15 mcg/kg/min AGGRASTAT DRIP given in lab by [place] Dotson RN in Right Antecubital via Peripheral IV . Pump/Drip Flow = 20.74 ml/hr using NaCl .9 with a concentration of 12.5 mg in 250 ml. Ordered by Андрей Odonnell. IV Solutions 11/29/2017 2:45:14 PM 0 mL (IV) 500 NaCl .9 IV Solutions given in lab by [place] Dotson RN in Right Antecubital via Peripheral IV. Pump/Drip Flow = 20 ml/hr using NaCl .9. Ordered by Андрей Odonnell. Initial Case Assessment Cardiovascular HR Rhythm NIBP Chest Pain 85 sr 118/74 3 Circulatory - Right Pulses Dorsalis Pedis Femoral Radial 2 2 2 Scale (0,1,2,3,4,d) Circulatory - Left Pulses Dorsalis Pedis Femoral Radial 2 Scale (0,1,2,3,4,d) Neurological State Oriented to time-place- Alert Moves all extremities person Respiration - General Respiration Rate SpO2 (%) (B/min) 15 98 Final Case Assessment Cardiovascular HR Rhythm NIBP Chest Pain 85 sr 103/63 0 Circulatory - Right Pulses Dorsalis Pedis Femoral Radial 2 2 2 Scale (0,1,2,3,4,d) Circulatory - Left Pulses Dorsalis Pedis Femoral Radial 2 Scale (0,1,2,3,4,d) Neurological State Oriented to time-place- Alert Moves all extremities person Respiration - General Respiration Rate SpO2 (%) (B/min) 19 97 Chronological Log Time Study Chronological Log 14:40:07 Patient arrived via Bed. Heparin drip was discontinued prior to arriving to cath lab technologist. 14:40:15 Patient Name, D.O.B, / Arm[place] Verified By R.N. 14:43:21 Consent signed by the physician and the patient and verified by the Breastfeeding Program Coordinator staff. 14:43:22 Pre-op and post- op instructions given; patient acknowledges understanding of instructions. 14:43:24 Verbal Stimulation=2 Physical Stimulation=2 Airway=2 Respiration=2 TOTAL=8. (0=absent, 1=li mited, 2=present) Vitals capture started with the following parameters, Patient=Adult, Interval=5 min, Initial Pr ketmsr=531 mmHg, 14:44:45 Deflation Rate=5 mmHg, Cuff placed on Left Arm 14:44:54 Presedation assessment performed by Breastfeeding Program Coordinator RN. 14:45:00 Allens test performed on the right radial and ulnar artery. 14:45:07 Patient has been NPO for More than 6Hrs. 14:45:08 Skin Breakdown-none 14:45:10 Bonilla Prominences Protected 14:45:13 A # 20 IV was noted in the Antecubital (right). Grade = patent IV Solutions given in lab by [place] Dotson RN in Right Antecubital via Peripheral IV. Pump/Drip Flow = 20 ml/hr using 14:45:14 NaCl .9. Ordered by Андрей Odonnell. 14:45:16 History and physical on the chart or being dictated. 14:45:20 HR=80 bpm, TXFM=908/71 mmhg, SpO2=99 %, Resp=11 B/min, Pain=3, Can=2 14:45:44 Reference ECG taken 14:50:17 HR=79 bpm, LJPU=183/74 mmhg, SpO2=98.0 %, Resp=11 B/min, Pain=3, Can=2 Assessment: Initial Case, HR=85 BPM, Rhythm=sr, CVXE=852/74 mmhg, Chest Pain=3 Right Pulses: Raj Ped=2, Femoral=2, Radial=2 14:53:08 Left Pulses: Raj Ped=2 Neurological: State=Alert, Ox3, BATRES Respiration: Resp=15 B/min, SpO2=98 % 14:55:14 HR=88 bpm, RKTR=565/76 mmhg, SpO2=98.0 %, Resp=16 B/min 14:59:09 Right groin and right wrist prepped with 2% chlorhexidine, and draped after a 3 min. waitin g time. 15:00:19 HR=88 bpm, VQVF=279/65 mmhg, SpO2=97.0 %, Resp=14 B/min 15:05:20 HR=81 bpm, JJCQ=980/71 mmhg, SpO2=97.0 %, Resp=12 B/min 15:06:35 Pressure channel 1 zeroed. 15:07:32 MD paged 15:08:40 MD responded 15:10:17 HR=83 bpm, BYQU=723/74 mmhg, YgY0=106.0 %, Resp=13 B/min 15:15:18 HR=82 bpm, AWTW=987/70 mmhg, Resp=8 B/min 15:16:46 MD arrived. 15:17:24 2 mg VERSED given in lab by [place] Dotson RN in Right Antecubital via Peripheral IV. Ordered by Андрей Odonnell. Time Out. Correct patient, correct procedure, correct physician, power injector not loaded with contrast with surgical 15:18:43 team present. Time Out Concurred by MD and individual staff in procedure. 15:19:56 Case Start 15:19:58 10 mL 1% XYLOCAINE given in lab by Андрей Odonnell in Right Radial via Subcutaneous. Ordered b y Андрей Odonnell. 15:20:17 HR=87 bpm, FBPT=428/76 mmhg, SpO2=92 %, Resp=22 B/min 15:21:07 Access site was Radial Artery. Right A SHEATH, FR6 RADIAL PRELUDE EASE 11CM FR 6 was advanced into the Radial (right) using the Perc utaneous 15:22:08 technique. 5 mL (Bolus) RADIAL COCKTAIL given in lab by Андрей Odonnell in Right Radial via Radial. Using [So lution Name]. Ordered 15:22:28 by Андрей Odonnell. Reason: Ntg 200mcg Verapamil 2.5mg Heparin 2500U. A CATHETER, FR5 OPTITORQUE RADIAL TIG 4.0 FR 5 was advanced over a wire. OMNIPAQUE, 350 MG, 150 ML 150ML 15:23:08 was used for injections. 15:24:26 A WIRE, HYDROSTEER 150CM ANGLED GLIDE 150CM was inserted via Radial (right). 15:25:24 HR=82 bpm, NIBP=87/54 mmhg, SpO2=93.0 %, Resp=17 B/min 15:26:17 2 mg VERSED given in lab by [place] Dotson RN in Right Antecubital via Peripheral IV. Ordered by Андрей Odonnell. 15:26:27 2 l/min OXYGEN given in lab by [place] Dotson RN via Nasal. Ordered by Андрей Odonnell. 15:30:11 HR=84 bpm, NJOW=378/72 mmhg, SpO2=92.0 %, Resp=26 B/min 15:34:04 The Brach. Art. (right) was injected and visualized at various angles. OMNIPAQUE, 350 MG, 1 50ML 150ML used. 15:34:30 Catheter was removed 15:34:52 A WIRE, EXCHANGE 260CM 3MMJ 260CM was inserted via Radial (right). 15:35:16 HR=86 bpm, GRSD=933/70 mmhg, SpO2=94.0 %, Resp=23 B/min A CATHETER, FR5 OPTITORQUE RADIAL TIG 4.0 FR 5 was advanced over a wire. OMNIPAQUE, 350 MG, 150 ML 150ML 15:36:21 was used for injections. Recorded Pressure: Ao, HR=87, Condition=Condition 1 15:36:41 (Aorta) Ao 108/64/84 15:37:20 The RCA was injected and visualized at various angles. OMNIPAQUE, 350 MG, 150ML 150ML used . After removing the current catheter a JL 3.5 DXTERITY CATHETER FR 5 was advanced over a WIRE, E XCHANGE 260CM 15:38:02 3MMJ 260CM. 15:40:21 HR=93 bpm, CGJT=339/67 mmhg, SpO2=96 %, Resp=22 B/min 15:40:40 The LCA was injected and visualized at various angles. OMNIPAQUE, 350 MG, 150ML 150ML used . After removing the current catheter a XB 3.5 GUIDE CATHETER FR 6 was advanced over a WIRE, EXCH PAYAM 260CM 15:43:02 3MMJ 260CM. 15:44:02 Activated Clotting Time Drawn 15:45:23 HR=85 bpm, MQWS=115/61 mmhg, SpO2=95.0 %, Resp=23 B/min 15:47:24 ACT (Normal Range 90-180) = 167 58 mg AGGRASTAT BOLUS given in lab by [place] Dotson RN in Right Antecubital via Peripheral IV. O rdered by Blas 15:48:22 Андрей. After removing the current catheter a XB 3.0 GUIDE CATHETER FR 6 was advanced over a WIRE, EXCH PAYAM 260CM 15:48:39 3MMJ 260CM. Unable to cannulate 15:49:35 7000 units HEPARIN given in lab by [place] Dotson RN in Right Antecubital via Peripheral IV. Ordered by Андрей Odonnell. 15:50:19 HR=80 bpm, KZPW=765/67 mmhg, SpO2=97.0 %, Resp=12 B/min 15:50:20 1 mg VERSED given in lab by Mauri SALGUERO, [place] in Right Antecubital via Peripheral IV. Ordered by Андрей Odonnell. 0.15 mcg/kg/min AGGRASTAT DRIP given in lab by Mauri SALGUERO, [place] in Right Antecubital via Periphe ral IV. Pump/Drip 15:52:38 Flow = 20.74 ml/hr using NaCl .9 with a concentration of 12.5 mg in 250 ml. Ordered by Michelle Odonnell. 15:53:45 50 mcg FENTANYL given in lab by Mauir SALGUERO, [place] in Right Antecubital via Peripheral IV. Ord ered by Андрей Odonnell. 15:54:40 Activated Clotting Time Drawn 15:55:23 HR=86 bpm, MCZH=376/62 mmhg, Resp=21 B/min After removing the current catheter a XBLAD 3.5 GUIDE CATHETER FR 6 was advanced over a WIRE, E XCHANGE 15:55:24 260CM 3MMJ 260CM. 15:57:46 A WIRE, ASAHI PROWATER 180CM 180CM was inserted via Radial (right). 15:59:17 ACT (Normal Range 90-180) = 228 16:00:20 HR=86 bpm, HEVA=615/71 mmhg, SpO2=95.0 %, Resp=19 B/min 16:00:34 2000 units HEPARIN given in lab by Mauri SALGUERO, [place] in Right Antecubital via Peripheral IV. Ordered by Андрей Odonnell. 16:00:56 A BALLOON, 2.0 X 12MM EUPHORA 12MM was inserted over WIRE, ASAHI PROWATER 180CM 180CM via t he CIRC Mid. A BALLOON, 2.0 X 12MM EUPHORA 12MM over a WIRE, ASAHI PROWATER 180CM 180CM in the CIRC Mid was inflated 16:01:25 using a 30 MARIO INDEFLATOR at 8 mario for 30 sec. A BALLOON, 2.0 X 12MM EUPHORA 12MM over a WIRE, ASAHI PROWATER 180CM 180CM in the CIRC Mid was inflated 16:02:10 using a 30 MARIO INDEFLATOR at 13 mario for 30 sec. 16:03:10 Balloon Removed. 16:05:23 HR=84 bpm, ZKKX=237/62 mmhg, SpO2=95.0 %, Resp=20 B/min 16:05:50 50 mcg NTG (IC) given in lab by Аднрей Odonnell via Intra-coronary. Ordered by Андрей Odonnell. 16:06:25 50 mcg NTG (IC) given in lab by Андрей Odonnell via Intra-coronary. Ordered by Андрей Odonnell. A STENT, 2.25 15MM ANAHI 2.25 15MM was advanced through a XBLAD 3.5 GUIDE CATHETER FR 6 over a W EDITA, 16:08:19 [facility] PROWATER 180CM 180CM. A STENT, 2.25 15MM ANAHI 2.25 15MM was deployed using a 30 MARIO INDEFLATOR at 12 atmospheres for 30 seconds 16:09:26 in the CIRC Mid. 16:10:06 Delivery device removed 16:10:22 HR=84 bpm, STFC=149/63 mmhg, SpO2=93.0 %, Resp=20 B/min 16:12:50 Wire redirected to OM 16:15:23 HR=89 bpm, QJGE=538/59 mmhg, SpO2=95.0 %, Resp=20 B/min 16:15:31 Wire removed 16:17:12 A WIRE, WHISPER W/HYDROCOAT 190CM 190CM was inserted via Radial (right). 16:18:51 Interventional wire has crossed the lesion 16:20:24 HR=82 bpm, PJUX=036/65 mmhg, Resp=20 B/min A BALLOON, 2.0 X 12MM EUPHORA 12MM was inserted over WIRE, WHISPER W/HYDROCOAT 190CM 190CM via the 16:20:40 OM1 Prox. A BALLOON, 2.0 X 12MM EUPHORA 12MM over a WIRE, WHISPER W/HYDROCOAT 190CM 190CM in the OM1 Prox was 16:20:42 inflated using a 30 MARIO INDEFLATOR at 8 mario for 15 sec. 16:22:04 50 mcg NTG (IC) given in lab by Андрей Odonnell via Intra-coronary. Ordered by Андрей Odonnell. 16:22:09 Balloon Removed. A BALLOON, 2.0 X 20MM EUPHORA 20MM was inserted over WIRE, WHISPER W/HYDROCOAT 190CM 190CM via the 16:22:59 OM1 Prox. A BALLOON, 2.0 X 20MM EUPHORA 20MM over a WIRE, WHISPER W/HYDROCOAT 190CM 190CM in the OM1 Prox was 16:24:05 inflated using a 30 MARIO INDEFLATOR at 13 mario for 30 sec. A BALLOON, 2.0 X 20MM EUPHORA 20MM over a WIRE, WHISPER W/HYDROCOAT 190CM 190CM in the OM1 Prox was 16:24:38 inflated using a 30 MARIO INDEFLATOR at 13 mario for 30 sec. 16:25:25 HR=83 bpm, FENK=112/65 mmhg, SpO2=96.0 %, Resp=21 B/min A BALLOON, 2.0 X 20MM EUPHORA 20MM over a WIRE, WHISPER W/HYDROCOAT 190CM 190CM in the OM1 Prox was 16:25:32 inflated using a 30 MARIO INDEFLATOR at 14 mario for 30 sec. 16:26:20 Balloon Removed. 16:27:16 50 mcg FENTANYL given in lab by [place] Dotson RN in Right Antecubital via Peripheral IV. Ord ered by Андрей Odonnell. 16:28:52 1 mg VERSED given in lab by [place] Dotson RN in Right Antecubital via Peripheral IV. Ordered by Андрей Odonnell. A STENT, 2.25 22MM ANAHI 2.25 22MM was advanced through a XBLAD 3.5 GUIDE CATHETER FR 6 over a W EDITA, 16:29:04 WHISPER W/HYDROCOAT 190CM 190CM. A STENT, 2.25 22MM ANAHI 2.25 22MM was deployed using a 30 MARIO INDEFLATOR at 12 atmospheres for 30 seconds 16:29:19 in the OM1 Prox. 16:30:14 Delivery device and wire removed 16:30:24 HR=87 bpm, NIBP=98/62 mmhg, Resp=19 B/min After removing the current catheter a MPA-2 INFINITI CATHETER FR 6 was advanced over a WIRE, EX CHANGE 260CM 16:32:33 3MMJ 260CM. 16:32:50 Catheter was removed 16:33:39 Case End 16:35:23 HR=84 bpm, KIGO=527/63 mmhg, SpO2=96.0 %, Resp=19 B/min Radial Compression Device Used. 8 mLs of air placed in BAND, RADIAL COMPRESSION TR SHORT 24 24 CM. Affected 16:35:49 hand 99 % O2 saturation. 16:36:08 No case complications noted. 16:36:10 Cine recording checked. Assessment: Final Case, HR=85 BPM, Rhythm=sr, QXZO=208/63 mmhg, Chest Pain=0 Right Pulses: Raj Ped=2, Femoral=2, Radial=2 16:36:18 Left Pulses: Raj Ped=2 Neurological: State=Alert, Ox3, BATRES Respiration: Resp=19 B/min, SpO2=97 % 16:37:09 ACT (Normal Range 90-180) = 246 16:38:17 180 mg BRILINTA given in lab by [place] Dotson RN via Oral. Ordered by Андрей Odonnell. 16:42:55 Patient moved to bed 16:43:04 Patient transported to [facility] End Study - Contrast Media Used In Study Contrast Total Opened (mL) Total Used (mL) Total Wasted (mL) Omnipaque 210 210 0 End Study - Maximum Contrast Load Max Contrast Load (mL) 639.9 End Study - Radiation Exposure Fluoro Time (minutes) 26.7 End Study - Sheaths Sheaths Pulled By Sheath Hold Time (min) Rolanda Dean End Study - Patient Disposition Complications Transferred To Interventional Outcome No Telemetry Bed successful
[2017-11-29] MEDS ORDERED: MISC INFORMATION XX ONE (17:00)
[2017-11-29] MEDS ORDERED: TIROFIBAN INFUSION INJ 250 ML IV SCH (17:00)
[2017-11-29] MEDS ORDERED: TEMAZEPAM 15 MG CAP PO PRN (17:00)
[2017-11-29] MEDS ORDERED: PILL SPLITTER OTHER PRN (17:30)
--- NOTE | 2017-11-29 17:56 | MA ---
cc: CLOVER CHARLTON SURYA P. MD DATE: 11/29/2017. PROCEDURE PERFORMED: Difficult left heart catheterization, selective coronary angiography, angioplasty and stent of the mid left circumflex, angioplasty and stent of a totally occluded first obtuse marginal. PROCEDURE NOTES: The patient was brought to the cardiac catheterization laboratory in a fasting state after having signed informed consent. The right radial region was prepped and draped as per policy and anesthetized with 1% lidocaine. Arterial access was obtained via the right radial artery and a 6-Greek sheath placed. Coronary arteriography was performed using a tiger catheter to engage the right coronary and a Marley left 3.5 to engage the left main. The aortic valve was crossed briefly during case demonstrating no gradient. Left ventriculography was not done. Percutaneous coronary intervention was done as described below. There were no apparent immediate complications. HEMODYNAMIC RESULTS: Aorta 108/64 with a mean of 84. CORONARY ARTERIOGRAPHY: The left main has 10% ostial stenosis. The left anterior descending is fairly diffusely diseased. There is likely up to 25% tubular stenosis proximally at the takeoff of a very small first diagonal and diffuse up to 20% mid left anterior descending disease. The distal left anterior descending is angiographically normal. The very small first diagonal has up to 40% ostial stenosis. There is a small a medium-sized second diagonal which probably has up to 50% slightly hazy stenosis proximally. The left circumflex is also fairly diffusely diseased. There is 95% stenosis in its mid section. There is also a totally occluded obtuse marginal very close to its origin. The right coronary artery is a medium-sized dominant vessel with diffuse mid disease, probably resulting in up to 30% stenosis. LEFT VENTRICULOGRAPHY: Not done. PERCUTANEOUS CORONARY INTERVENTION DESCRIPTION: Aggrastat was given as per protocol. Adequate heparin was given during the procedure to achieve an ACT of 246 seconds. Using a 6-Greek XB 3.5 guiding catheter, the ostium of the left main was re-engaged. Using a 0.014 [place] guidewire, the mid left circumflex disease was crossed without difficulty and the tip of the wire positioned distally. Pre-dilation was done using a 2.0 mm Euphora balloon catheter. Stenting was then done with a 2.25 x 15 mm Resolute Juliano stent, which was deployed at 12 atmospheres for thirty seconds. Final angiography of the mid-left circumflex shows reduction of the initial stenosis to negative 10% residual with no evidence for dissection or distal embolization. The guidewire was retracted. We tried to cross the totally occluded obtuse marginal with a [place] guidewire without success. We then used a Whisper wire which with some difficulty we used to cross the total occlusion. Pre-dilation was done using the same 2.0 mm balloon catheter. Further pre-dilation was done using a 2.0 x 20 mm Euphora balloon catheter. Stenting was then done using a 2.25 x 22-mm Resolute Juliano stent which was deployed at 12 atmospheres for thirty seconds. Final angiography shows overall good results with reduction of the initial total occlusion to 0% residual with no definite evidence for dissection or distal embolization. The patient tolerated the procedure well. He was thoroughly sedated throughout most of the case. CONCLUSIONS: 1. Moderate to severe three-vessel coronary disease including a totally occluded obtuse marginal and severely diseased mid left circumflex, now status post angioplasty and stent of these two regions. 2. Right dominant system. MD JOSÉ Reyes/DICKSON /4:27 PM /5:35 PM MTDJeremie
--- NOTE | 2017-11-29 18:47 | EKG ---
Date Performed: 11/28/2017 Time Performed: 13:56:23 PTAGE: 57 years EKG: Sinus rhythm LOW QRS VOLTAGE IN PRECORDIAL LEADS BORDERLINE ECG PREVIOUS TRACING : 01/07/2015 12.20 Compared to prior tracing no significant change DOCTOR: Nicole Cochran Interpretating Date/Time 11/29/2017 18:45:32
--- NOTE | 2017-11-29 18:47 | EKG ---
Date Performed: 11/28/2017 Time Performed: 17:01:23 PTAGE: 57 years EKG: Sinus rhythm LOW QRS VOLTAGE IN PRECORDIAL LEADS BORDERLINE ECG PREVIOUS TRACING : 11/28/2017 13.56 Compared to prior tracing no significant change DOCTOR: Nicole Cochran Interpretating Date/Time 11/29/2017 18:45:52
[2017-11-29] MEDS: OXYMETAZOLINE HCL 0.05% 15 ML NASAL SPRAY NASAL SCH (20:55)
[2017-11-29] MEDS ORDERED: ATORVASTATIN 80 MG TAB PO SCH (21:00)
[2017-11-30] VITALS (16 sets, daily range): BP systolic 94–122; BP diastolic 65–73; PULSE 67–112; RESP 16–18; TEMP 98.4–98.6; O2SAT 95–98
[2017-11-30] MEDS: SODIUM CHLOR 0.9% 1000 ML INJ 1,000 ML IV SCH ×2 (02:47→04:57)
[2017-11-30 06:53] LABS: AUTOMATED NEUTROPHIL # 5.7 TH/MM3 (1.8-7.7); BASOPHIL % 0.4 % (0.0-2.0); EOSINOPHIL # 0.2 TH/MM3 (0-0.4); EOSINOPHIL % 2.3 % (0.0-4.0); HEMATOCRIT 33.7 % (39.0-51.0); HEMOGLOBIN 11.1 GM/DL (13.0-17.0); LYMPHOCYTE # 2.1 TH/MM3 (1.0-4.8); MEAN CELL VOLUME 78.3 FL (80.0-100.0); MEAN CORPUSCULAR HEMOGLOBIN 25.9 PG (27.0-34.0); MEAN PLATELET VOLUME 9.6 FL (7.0-11.0); MONO % 8.6 % (0.0-8.0); MONOCYTE # 0.8 TH/MM3 (0-0.9); NEUT % 64.7 % (16.0-70.0); PLATELET COUNT 241 TH/MM3 (150-450); RED BLOOD COUNT 4.31 MIL/MM3 (4.50-5.90); RED CELL DISTRIBUTION WIDTH 15.6 % (11.6-17.2); WHITE BLOOD COUNT 8.8 TH/MM3 (4.0-11.0)
[2017-11-30 07:17] LABS: BICARBONATE 25.4 MEQ/L (21.0-32.0); CALCIUM 7.8 MG/DL (8.5-10.1); CREATININE 0.97 MG/DL (0.60-1.30)
--- NOTE | 2017-11-30 07:23 | PD.CARD.PN ---
Subjective Subjective Remarks Denies CP, arm pain, dyspnea, dizziness, palpitations. Objective Medications Item Value Date Time Aspirin 81 mg 11/30/17 0900 (Aspirin Chew) DAILY/PO Ticagrelor 90 mg 11/30/17 0900 (Brilinta) BID/PO Lisinopril 2.5 mg 11/30/17 0900 (Prinivil) DAILY/PO Atorvastatin 80 mg 11/29/172099 Calcium HS/PO 11/29/172053 (Lipitor) Tirofiban/Sodium 250 ml @ 20.736 mls/hr 11/29/17 1700 Chloride .Q12H4M/IV 11/30/17 0001 Carvedilol 3.125 mg 11/29/17 0900 (Coreg) Q12HR/PO 11/29/172053 Cilostazol 50 mg 11/28/172099 (Pletal) BID/PO Current Medications Medications (Trade) Dose Ordered Sig/Heidi Route Start Time Stop Time Status Last Admin (D50w (Vial) Inj) 50 ml UNSCH PRN IV PUSH 11/28/17 19:15 (Glucagon Inj) 1 mg UNSCH PRN OTHER 11/28/17 19:15 (NovoLOG SUPPLEMENTAL SCALE) 1 ACHS SLIDING SCALE SQ 11/28/17 21:00 11/29/17 17:00 (NS Flush) 2 ml UNSCH PRN IV FLUSH 11/28/17 19:15 (NS Flush) 2 ml BID IV FLUSH 11/28/17 21:00 11/29/17 08:20 (Zofran Inj) 4 mg Q6H PRN IVP 11/28/17 19:15 (Tylenol) 650 mg Q6H PRN PO 11/28/17 19:15 ([place] 5-325 Mg) 1 tab Q4H PRN PO 11/28/17 19:15 (Morphine Inj) 2 mg Q3H PRN IV PUSH 11/28/17 19:15 11/29/17 00:33 (Johanny-Colace) 1 tab BID PO 11/28/17 21:00 11/29/17 08:19 (Milk Of Magnesia Liq) 30 ml Q12H PRN PO 11/28/17 19:15 (Senokot) 17.2 mg Q12H PRN PO 11/28/17 19:15 (Dulcolax Supp) 10 mg DAILY PRN RECTAL 11/28/17 19:15 (Lactulose Liq) 30 ml DAILY PRN PO 11/28/17 19:15 (Pletal) 50 mg BID PO 11/28/17 21:00 (Neurontin) 100 mg BID PO 11/28/17 21:00 11/29/17 20:54 (Protonix) 20 mg DAILY PO 11/29/17 09:00 11/29/17 08:20 (Effexor) 75 mg DAILY PO 11/29/17 09:00 11/29/17 09:00 Sodium Chloride 1,000 ml @ 100 mls/hr Q10H IV 11/29/17 09:00 12/04/17 08:59 11/29/17 19:00 (Benadryl) 50 mg GINNER PO 11/29/17 08:15 12/03/17 08:14 (Valium) 10 mg GINNER PO 11/29/17 08:15 12/03/17 08:14 (Versed Inj) 1 mg GINNER IV PUSH 11/29/17 08:15 12/03/17 08:14 (Coreg) 3.125 mg Q12HR PO 11/29/17 09:00 11/29/17 20:54 (Lipitor) 80 mg HS PO 11/29/17 21:00 11/29/17 20:54 (Flonase Ike Spr) 1 spray BID NASAL 11/29/17 13:00 11/29/17 20:55 (Afrin 0.05% [place]ke [place]) 1 spray Q12HR NASAL 11/29/17 21:00 11/29/17 20:55 (Restoril) 15 mg HS PRN PO 11/29/17 17:00 (Aspirin Chew) 81 mg DAILY PO 11/30/17 09:00 (Brilinta) 90 mg BID PO 11/30/17 09:00 Tirofiban/Sodium Chloride 250 ml @ 20.736 mls/ hr Q12H4M IV 11/29/17 17:00 11/30/17 16:59 11/30/17 00:01 (Prinivil) 2.5 mg DAILY PO 11/30/17 09:00 (Pill Splitter) 1 ea UNSCH PRN OTHER 11/29/17 17:30 Vital Signs / I&O Vital Signs Date Time Temp Pulse Resp B/P (MAP) Pulse Ox O2 Delivery O2 Flow Rate FiO2 11/30/17 06:00 77 11/30/17 05:00 77 11/30/17 04:00 75 11/30/17 03:00 98.5 84 16 110/65 (80) 95 11/30/17 03:00 87 11/30/17 02:00 92 11/30/17 01:00 84 11/30/17 00:00 85 11/29/17 23:30 97.7 83 16 122/58 (79) 95 11/29/17 23:00 84 11/29/17 22:00 80 11/29/17 21:00 84 11/29/17 20:00 99.0 75 16 122/66 (84) 94 11/29/17 20:00 78 11/29/17 19:00 86 11/29/17 18:01 98 11/29/17 17:00 98.2 88 18 108/65 (79) 97 11/29/17 17:00 84 11/29/17 14:00 84 11/29/17 13:00 82 11/29/17 12:00 84 11/29/17 11:30 98.2 86 18 138/77 (97) 94 11/29/17 11:00 80 11/29/17 10:00 86 11/29/17 09:00 80 11/29/17 08:30 98.5 84 18 129/80 (96) 99 11/29/17 08:00 86 I/O 11/29/17 11/29/17 11/29/17 11/30/17 11/30/17 11/30/17 07:00 15:00 23:00 07:00 15:00 23:00 Intake Total 240 ml 480 ml 1720 ml Output Total 700 ml 650 ml Balance 240 ml -220 ml 1070 ml Intake Oral 240 ml 480 ml 480 ml IV Total 1240 ml Output Urine Total 700 ml 650 ml # Voids 5 # Bowel Movements 0 0 Physical Exam GENERAL: Well developed, well nourished. No acute distress. HEENT: Jugular venous pressure is normal. CHEST: Lungs clear to auscultation bilaterally. Unlabored respiratory effort. CARDIAC: Regular rate and rhythm without S3, S4, or murmur. ABDOMEN: Soft, nontender, no hepatosplenomegaly. Bowel sounds present. EXTREMITIES: No clubbing, cyanosis, or edema. Right radial arteriotomy site stable, no hematoma, normal radial pulse. Laboratory Laboratory Tests Test 11/29/17 11:30 11/30/17 04:38 Activated Partial Thromboplast Time 25.9 SEC White Blood Count 8.8 TH/MM3 Red Blood Count 4.31 MIL/MM3 Hemoglobin 11.1 GM/DL Hematocrit 33.7 % Mean Corpuscular Volume 78.3 FL Mean Corpuscular Hemoglobin 25.9 PG Mean Corpuscular Hemoglobin Concent 33.0 % Red Cell Distribution Width 15.6 % Platelet Count 241 TH/MM3 Mean Platelet Volume 9.6 FL Neutrophils (%) (Auto) 64.7 % Lymphocytes (%) (Auto) 24.0 % Monocytes (%) (Auto) 8.6 % Eosinophils (%) (Auto) 2.3 % Basophils (%) (Auto) 0.4 % Neutrophils # (Auto) 5.7 TH/MM3 Lymphocytes # (Auto) 2.1 TH/MM3 Monocytes # (Auto) 0.8 TH/MM3 Eosinophils # (Auto) 0.2 TH/MM3 Basophils # (Auto) 0.0 TH/MM3 CBC Comment DIFF FINAL Differential Comment Blood Urea Nitrogen 8 MG/DL Creatinine 0.97 MG/DL Random Glucose 167 MG/DL Calcium Level 7.8 MG/DL Sodium Level 138 MEQ/L Potassium Level 3.9 MEQ/L Chloride Level 104 MEQ/L Carbon Dioxide Level 25.4 MEQ/L Anion Gap 9 MEQ/L Estimat Glomerular Filtration Rate 79 ML/MIN Assessment and Plan Problem List: (1) CAD (coronary artery disease) ICD Codes: I25.10 - Atherosclerotic heart disease of [place] coronary artery without angina pectoris Status: Chronic Plan: Stable s/p stent mid left circumflex and stent obtuse marginal. No further angina. Right radial site stable. AM labs OK. REC increase ambulation discharge later this afternoon, 3-4 week f/u with Dr. Corona Islas continue Brilinta/baby aspirin continue beta [place]/EMMANUEL-I (2) Hyperlipidemia ICD Codes: E78.5 - Hyperlipidemia, unspecified Status: Chronic Plan: Very suboptimal lipid profile. Rec discharging patient on max dose atorvastatin. Follow up labs as per his PCP. (3) Hypertension ICD Codes: I10 - Essential (primary) hypertension Status: Chronic Plan: Stable. Normotensive. Code Status full code Discussed Condition With patient Problem Qualifiers (1) CAD (coronary artery disease): Qualified Codes: I25.110 - Atherosclerotic heart disease of [place] coronary artery with unstable angina pectoris (2) Hyperlipidemia: Qualified Codes: E78.2 - Mixed hyperlipidemia (3) Hypertension: Qualified Codes: I10 - Essential (primary) hypertension Андрей Odonnell MD Nov 30, 2017 07:23
[2017-11-30] MEDS: INSULIN ASPART SUPPLEMENTAL SCALE SQ SCH ×2 (08:34→12:00)
[2017-11-30] MEDS: CILOSTAZOL 50 MG TAB PO SCH (08:34)
[2017-11-30] MEDS: GABAPENTIN 100 MG CAP PO SCH (08:34)
[2017-11-30] MEDS: DOCUSATE SODIUM 50 MG/SENNA 8.6 MG TAB PO SCH (08:35)
[2017-11-30] MEDS: CARVEDILOL 3.125 MG TAB PO SCH (08:35)
[2017-11-30] MEDS: OXYMETAZOLINE HCL 0.05% 15 ML NASAL SPRAY NASAL SCH (08:37)
[2017-11-30] MEDS: PANTOPRAZOLE SOD 20 MG DELAYED RELEASE TAB PO SCH (08:37)
[2017-11-30] MEDS: FLUTICASONE PROPIONATE 50 MCG/ACT 16 GM NASAL SPRAY NASAL SCH (08:38)
[2017-11-30] MEDS: SODIUM CHLORIDE 0.9% FLUSH 10 ML FLUSH IV FLUSH SCH (08:38)
[2017-11-30] MEDS ORDERED: BRIL90TA PO (08:52)
[2017-11-30] MEDS ORDERED: ATOR80TA45 PO (08:52)
[2017-11-30] MEDS ORDERED: AZEL0.055 EACH NARE (08:52)
[2017-11-30] MEDS ORDERED: CARV3.125 PO (08:52)
[2017-11-30] MEDS ORDERED: BUDE8.43 EACH NARE (08:52)
[2017-11-30] MEDS ORDERED: TICAGRELOR 90 MG TAB PO SCH (09:00)
[2017-11-30] MEDS ORDERED: LISINOPRIL 5 MG TAB PO SCH (09:00)
[2017-11-30] MEDS ORDERED: ASPIRIN 81 MG CHEW TAB PO SCH (09:00)
[2017-11-30] MEDS: VENLAFAXINE HCL 75 MG TAB PO SCH (09:09)
[2017-11-30] MEDS ORDERED: LISI-519 PO (10:43)
[2017-11-30] MEDS ORDERED: CARV6.25 PO (10:45)
[2017-11-30] MEDS ORDERED: CARVEDILOL 3.125 MG TAB PO ONE (11:00)
--- NOTE | 2017-11-30 15:15 | ECHRPT ---
Indication: Cardiomyopathy CONCLUSIONS The left ventricular systolic function is normal with an estimated ejection fraction in the range of 60-65%. Normal left ventricular size. Wall thickness is normal. No regional wall motion abnormalities are present. Diffuse calcification of the aortic valve. There is trace tricuspid valve regurgitation. The estimated pulmonary arterial pressure is 39.4 mmHg. The inferior vena cava was not well visualized. BP: 110 / 65 HR: 80 Rhythm: Sinus MEASUREMENTS (Male / Female) Normal Values Technical Quality:Good 2D ECHO LV Diastolic Diameter PLAX 4.5 cm 4.2 - 5.9 / 3.9 - 5.3 cm LV Systolic Diameter PLAX 3.3 cm IVS Diastolic Thickness 1.1 cm 0.6 - 1.0 / 0.6 - 0.9 cm LVPW Diastolic Thickness 1.1 cm 0.6 - 1.0 / 0.6 - 0.9 cm LV Relative Wall Thickness 0.5 RV Internal Dim ED PLAX 2.6 cm LVOT Diameter 2.2 cm LA Systolic Diameter LX 4.0 cm 3.0 - 4.0 / 2.7 - 3.8 cm LV Ejection Fraction MOD 4C 59.6 % LV Cardiac Index MOD 4C 1995.2 cm/minm LV Ejection Fraction 4C AL 60.6 % LV Cardiac Index 4C AL 2118.6 cm/minm M-MODE Aortic Root Diameter MM 3.5 cm LA Systolic Diameter MM 4.0 cm LA Ao Ratio MM 1.1 AV Cusp Separation MM 1.0 cm DOPPLER AV Peak Velocity 190.0 cm/s AV Peak Gradient 14.4 mmHg LVOT Peak Velocity 108.0 cm/s LVOT Peak Gradient 4.7 mmHg AV Area Cont Eq pk 2.2 cm MV Area PHT 5.0 cm Mitral E Point Velocity 101.0 cm/s Mitral A Point Velocity 102.0 cm/s Mitral E to A Ratio 1.0 LV E' Lateral Velocity 7.6 cm/s Mitral E to LV E' Lateral Ratio 13.3 LV E' Septal Velocity 8.7 cm/s Mitral E to LV E' Septal Ratio 11.6 TR Peak Velocity 271.0 cm/s TR Peak Gradient 29.4 mmHg Right Atrial Pressure 10.0 mmHg Pulmonary Artery Systolic Pressu 39.4 mmHg Right Ventricular Systolic Press 39.4 mmHg PV Peak Velocity 103.0 cm/s PV Peak Gradient 4.2 mmHg FINDINGS LEFT VENTRICLE The left ventricular systolic function is normal with an estimated ejection fraction in the range of 60-65%. Normal left ventricular size. Wall thickness is normal. No regional wall motion abnormalities are present. RIGHT VENTRICLE Normal right ventricular size and systolic function. LEFT ATRIUM The left atrial size is normal. RIGHT ATRIUM The right atrial size is normal. ATRIAL SEPTUM Normal atrial septal thickness without atrial level shunting by limited color doppler interrogation. AORTA The aortic root and proximal ascending aorta are normal in size on limited imaging. MITRAL VALVE Structurally normal mitral valve. No mitral valve stenosis or regurgitation. AORTIC VALVE Trileaflet aortic valve. Diffuse calcification of the aortic valve. TRICUSPID VALVE Structurally normal tricuspid valve. There is trace tricuspid valve regurgitation. The estimated pulmonary arterial pressure is 39.4 mmHg. PULMONARY VALVE No pulmonary valve regurgitation or stenosis. VESSELS The inferior vena cava was not well visualized. PERICARDIUM No pericardial effusion. Aaron Marroquin MD, FACC, [facility] [place] (Electronically Signed) Final Date:30 November 2017 15:14
--- NOTE | 2017-11-30 19:41 | HHI.PR ---
Subjective Remarks Patient seen this morning around 10 AM. Says he is feeling well. Denies any chest pain or shortness of breath. He did have some epistaxis which is mild. Objective Vital Signs Date Time Temp Pulse Resp B/P (MAP) Pulse Ox O2 Delivery O2 Flow Rate FiO2 11/30/17 14:00 112 11/30/17 13:00 88 11/30/17 12:00 84 11/30/17 11:00 98.4 97 18 94/66 (75) 98 11/30/17 11:00 101 11/30/17 10:00 94 11/30/17 09:00 108 11/30/17 08:00 102 11/30/17 07:30 98.6 105 18 122/73 (89) 98 11/30/17 07:00 67 11/30/17 06:00 77 11/30/17 05:00 77 11/30/17 04:00 75 11/30/17 03:00 98.5 84 16 110/65 (80) 95 11/30/17 03:00 87 11/30/17 02:00 92 11/30/17 01:00 84 11/30/17 00:00 85 11/29/17 23:30 97.7 83 16 122/58 (79) 95 11/29/17 23:00 84 11/29/17 22:00 80 11/29/17 21:00 84 11/29/17 20:00 99.0 75 16 122/66 (84) 94 11/29/17 20:00 78 I/O 11/29/17 11/29/17 11/29/17 11/30/17 11/30/17 11/30/17 07:00 15:00 23:00 07:00 15:00 23:00 Intake Total 240 ml 480 ml 1720 ml 480 ml Output Total 700 ml 650 ml 520 ml Balance 240 ml -220 ml 1070 ml -40 ml Intake Oral 240 ml 480 ml 480 ml 480 ml IV Total 1240 ml Output Urine Total 700 ml 650 ml 520 ml # Voids 5 # Bowel Movements 0 0 1 Result Diagram: 11/30/1743711/30/17437 Objective Remarks GENERAL: Patient sitting up in chair, walking around room, walking in resendiz. Appears comfortable. Alert and oriented 4. SKIN: Warm and dry. HEAD: Normocephalic. EYES: No scleral icterus. No injection or drainage. NECK: Supple, trachea midline. No JVD. CARDIOVASCULAR: Regular rate and rhythm without murmurs, gallops, or rubs. RESPIRATORY: Breath sounds equal bilaterally. No accessory muscle use. GASTROINTESTINAL: Abdomen soft, non-tender, nondistended. MUSCULOSKELETAL: No cyanosis, or edema. BACK: Nontender without obvious deformity. No CVA tenderness. A/P Assessment and Plan //Unstable angina //CAD Status post cardiac catheterization with stenting Discharge home as per cardiology. Follow up cardiology as outpatient. //Sinus congestion -Discussed with patient that he needs to discontinue Afrin. Will prescribe AZELASTINE, Rhinocort to take its place. //Epistaxis. Improved after discontinuation of tirofiban drip. //Type 2 diabetes mellitus = A1c 6.8, indicating good control. Continue home regimen. //Hyperlipidemia LDL 127. Continue home pravastatin. Stressed compliance. Follow-up primary care. //PAD. Discussed with cardiology. Discontinue cilostazol in favor of Brilinta. GERD. Continue home PPI. Discharge Planning Discharge home. Follow-up with cardiology as outpatient. Ramiro Adorno MD Nov 30, 2017 19:40
--- NOTE | 2017-11-30 19:41 | HHI.DS ---
Discharge Summary Admission Date Nov 28, 2017 at 19:18 Discharge Date: Nov 30, 2017 Admitting Diagnosis Unstable angina (1) Unstable angina ICD Code: I20.0 - Unstable angina Status: Acute (2) Type 2 diabetes mellitus ICD Code: E11.9 - Type 2 diabetes mellitus without complications (3) Hyperlipidemia ICD Code: E78.5 - Hyperlipidemia, unspecified Status: Chronic (4) GERD (gastroesophageal reflux disease) ICD Code: K21.9 - Gastro-esophageal reflux disease without esophagitis Procedures Cardiac catheterization with stenting Brief History - From Admission Mr. Werner is a pleasant 57-year-old male patient with a known medical history of CAD with history of CABG, type 2 diabetes and hypertension who presented to the ED with complaints of chest pain. Patient states that around 1300 today while at rest he developed a sudden midsternal chest pain that radiated to his right arm, jaw and neck. Patient states the pain was intermittent, sharp and burning in nature, would intermittently worsen in severity, and rated a 9/10 on pain scale at its worst. Patient denies any aggravating or relieving factors, denies any associated nausea, vomiting, or diaphoresis. Does admit to associated shortness of breath with chest pain. Patient does state improvement of pain with the use of nitroglycerin and aspirin in the ED. Patient states that in late October he developed a similar type of chest discomfort and was evaluated in the ER in [place]. At that time CT of the chest and lower extremity ultrasounds were performed which were reportedly unremarkable. Patient does follow with the musical instrument supervisor, Dr. Islas, who was last seen 9 months ago and at that time patient underwent a cardiac stress test which was reportedly unremarkable. Patient does report a history of CABG in 2003. Denies any recent fever, chills, cough, shortness of breath, abdominal pain, nausea, vomiting, diarrhea or dysuria. At the time of assessment patient is lying in bed comfortably, rated the pain a 2/10 on pain scale, has just received IV morphine. Awaiting third set of cardiac enzymes. CBC/BMP: 11/30/17 0438 11/30/17 0438 Significant Findings Laboratory Tests Test 11/28/17 14:07 11/28/17 17:10 11/29/17 00:45 11/29/17 02:23 Hemoglobin 12.1 GM/DL (13.0-17.0) 12.2 GM/DL (13.0-17.0) Hematocrit 38.0 % (39.0-51.0) 36.0 % (39.0-51.0) Mean Corpuscular Volume 77.1 FL (80.0-100.0) 77.4 FL (80.0-100.0) Mean Corpuscular Hemoglobin 24.5 PG (27.0-34.0) 26.2 PG (27.0-34.0) Mean Corpuscular Hemoglobin Concent 31.7 % (32.0-36.0) D-Dimer Quantitative (PE/DVT) 0.75 MG/L FEU (0.00-0.50) Random Glucose 200 MG/DL (74-106) Calcium Level 8.4 MG/DL (8.5-10.1) Sodium Level 135 MEQ/L (136-145) Estimat Glomerular Filtration Rate 69 ML/MIN (>89) Creatine Kinase MB 5.2 NG/ML (0.5-3.6) Troponin I 0.09 NG/ML (0.02-0.05) 1.60 NG/ML (0.02-0.05) Test 11/29/17 05:53 11/29/17 11:30 11/30/17 04:38 Random Glucose 150 MG/DL (74-106) 167 MG/DL (74-106) Albumin 3.1 GM/DL (3.4-5.0) Calcium Level 8.1 MG/DL (8.5-10.1) 7.8 MG/DL (8.5-10.1) Estimat Glomerular Filtration Rate 83 ML/MIN (>89) 79 ML/MIN (>89) Hemoglobin A1c 6.8 % (4.3-6.0) Troponin I 3.17 NG/ML (0.02-0.05) LDL Cholesterol 127 MG/DL (0-99) Red Blood Count 4.31 MIL/MM3 (4.50-5.90) Hemoglobin 11.1 GM/DL (13.0-17.0) Hematocrit 33.7 % (39.0-51.0) Mean Corpuscular Volume 78.3 FL (80.0-100.0) Mean Corpuscular Hemoglobin 25.9 PG (27.0-34.0) Monocytes (%) (Auto) 8.6 % (0.0-8.0) Total Creatine Kinase 335 U/L (39-308) Creatine Kinase MB 18.2 NG/ML (0.5-3.6) Creatine Kinase MB % 5.4 % (0.0-4.0) Imaging Last Impressions Chest X-Ray 11/28/17 1350 Signed Impressions: Service Date/Time: Tuesday, November 28, 2017 14:12 - CONCLUSION: 1. No acute cardiopulmonary disease. Isaac Nunez MD CT Angiography 11/28/17 0000 Signed Impressions: Service Date/Time: Tuesday, November 28, 2017 16:17 - CONCLUSION: 1. No evidence of pulmonary embolism. Isaac Nunez MD Hospital Course Assessment and Plan //Unstable angina //CAD Status post cardiac catheterization with stenting Discharge home as per cardiology. Follow up cardiology as outpatient. //Sinus congestion -Discussed with patient that he needs to discontinue Afrin. Will prescribe AZELASTINE, Rhinocort to take its place. //Epistaxis. Improved after discontinuation of tirofiban drip. //Type 2 diabetes mellitus = A1c 6.8, indicating good control. Continue home regimen. //Hyperlipidemia LDL 127. Continue home pravastatin. Stressed compliance. Follow-up primary care. //PAD. Discussed with cardiology. Discontinue cilostazol in favor of Brilinta. GERD. Continue home PPI. Discharge Planning Discharge home. Follow-up with cardiology as outpatient. Pt Condition on Discharge: Good Discharge Disposition: Discharge Home Discharge Time: > 30 minutes Discharge Instructions DIET: Follow Instructions for: Diabetic Diet Activities you can perform: Regular-No Restrictions Follow up Referrals: Cardiology - 3 Weeks with Corona Islas MD PCP Follow-up - 1 Week with Ryan Frost MD New Medications: Azelastine Nasal [place] (Azelastine Nasal [place]) 0.15% [place] 2 SPRAY EACH NARE BID for Allergies, #1 BOTTLE 0 Refills To each nostril. Budesonide (Rhinocort Allergy) 32 Mcg/Actuation [place].pump 1 SPRAY EACH NARE BID for congestion for 30 Days, BOTTLE Carvedilol (Coreg) 6.25 Mg Tab 6.25 MG PO BID for heart, #60 TAB 0 Refills Atorvastatin (Atorvastatin) 80 Mg Tab 80 MG PO HS for heart for 30 Days, TAB Lisinopril (Lisinopril) 5 Mg Tab 2.5 MG PO DAILY for heart for 30 Days, TAB Ticagrelor (Brilinta) 90 Mg Tab 90 MG PO BID for heart for 30 Days, #60 TAB Continued Medications: Aspirin DR (Aspirin 81) 81 Mg Tabdr 81 MG PO DAILY, TAB 0 Refills Gabapentin (Gabapentin) 100 Mg Cap 100 MG PO BID, #60 CAP 0 Refills Liraglutide Inj (Victoza Inj) 18 Mg/3 Ml Pen 1.2 MG SQ DAILY, #1 PEN 0 Refills Lisinopril (Lisinopril) 20 Mg Tab 20 MG PO DAILY, #30 TAB 0 Refills Omeprazole (Omeprazole) 20 Mg Tab 20 MG PO DAILY, #30 TAB 0 Refills Sitagliptin (Januvia) 100 Mg Tab 100 MG PO DAILY for Blood Sugar Management, #30 TAB 0 Refills Venlafaxine (Effexor) 75 Mg Tab 75 MG PO DAILY, #30 TAB 0 Refills [Multivitamin] () [Vitamin D] () Unknown Dose Discontinued Medications: Celecoxib (Celebrex) 200 Mg Cap 200 MG PO DAILY for Pain Management, CAP 0 Refills Cilostazol (Cilostazol) 50 Mg Tab 50 MG PO BID for INTERMITTENT CLAUDICATION, TAB 0 Refills Ramiro Adorno MD Nov 30, 2017 19:41
[2017-11-30] MEDS ORDERED: CARVEDILOL 3.125 MG TAB PO SCH (21:00)
== END 2017-11-30 15:25 | disposition home or self-care (01) | DRG 247 ==
LOC: PHED 13:40 → PHEDA 19:18 → HCIS 22:13
PROVIDERS: ADMIT Hospitalist; ATTEND Hospitalist
PROC: 4A023N7 Measurement of Cardiac Sampling and Pressure, Left Heart, Percutaneous Approach (ICD-10-PCS; 2017-11-29)
PROC: B2111ZZ Fluoroscopy of Multiple Coronary Arteries using Low Osmolar Contrast (ICD-10-PCS; 2017-11-29)
PROC: 027135Z Dilation of Coronary Artery, Two Arteries with Two Drug-eluting Intraluminal Devices, Percutaneous Approach (ICD-10-PCS; principal; 2017-11-29 15:00)
DX: I25.110 Atherosclerotic heart disease of native coronary artery with unstable angina pectoris (principal); F03.90 Unspecified dementia, unspecified severity, without behavioral disturbance, psychotic disturbance, mood disturbance, and anxiety; E11.9 Type 2 diabetes mellitus without complications; E78.2 Mixed hyperlipidemia; I10 Essential (primary) hypertension; Z95.1 Presence of aortocoronary bypass graft; Z98.84 Bariatric surgery status; Z86.718 Personal history of other venous thrombosis and embolism; Z90.49 Acquired absence of other specified parts of digestive tract; R04.0 Epistaxis; K21.9 Gastro-esophageal reflux disease without esophagitis; R09.81 Nasal congestion
CPT/HCPCS: 71045; 71275; 80048; 80053; 80061; 82550; 82552; 82948; 83036; 84484; 85002; 85025; 85379; 85610; 85730; 92928; 93005; 93306; 93458; 96374; 96376; 99152; C1725; C1769; C1874; C1887; C1893; J1644; J1815; J2250; J2270; J3010; J3246; J7030; Q9967